=== PATIENT | male | born 1955 | race African-American/Black ===

== ENCOUNTER 2019-08-12 06:28 | Outpatient (CLI) | payer OTHER ==
[2019-08-12 11:08] LABS: #Basophils 0.1 thou/uL (0.0-0.2); #Eosinphils 0.2 thou/uL (0.0-0.7); #Lymphocytes 1.8 thou/uL (1.20-3.40); #Monocytes 0.5 thou/uL (0.11-0.59); #Neutrophils 2.7 thou/uL (1.40-6.50); %Lymphocytes 34.4 % (21.0-51.0); %Monocytes 8.9 % (0.0-10.0); %Neutrophils 51.6 % (42.0-75.0); Hemoglobin 13.6 g/dL (14.0-18.0); Mean Corpuscular HGB CONC 33.6 g/dL (32.0-36.0); Mean Corpuscular Volume 86.3 fL (78.0-98.0); Mean Platelet Volume 9.4 fL (7.4-10.4); Platelet Count 197 thou/uL (130-400); RBC Distribution Width 12.6 % (11.5-14.5); Red Blood Cell (RBC) Count 4.67 mill/uL (4.70-6.10); White Blood Cell (WBC) Count 5.2 thou/uL (4.8-10.8)
[2019-08-13 12:14] LABS: SARS-CoV-2 MS2 Positive; SARS-CoV-2 N Gene Negative; SARS-CoV-2 S Gene Negative; SARS-CoV-2 orf1ab Negative
--- NOTE | 2019-08-15 11:44 | EKG ---
Test Reason : Blood Pressure : / mmHG Vent. Rate : 052 BPM Atrial Rate : 052 BPM P-R Int : 200 ms QRS Dur : 084 ms QT Int : 488 ms P-R-T Axes : 002 025 026 degrees QTc Int : 453 ms Sinus bradycardia with Premature atrial complexes Nonspecific T wave abnormality Abnormal ECG Confirmed by LANE AMATO ([id number]) on 08/15/2019 11:44:19 AM Referred By: JALEEL Confirmed By:LANE AMATO
== END 2019-08-12 06:29 | disposition home or self-care (01) ==
LOC: LABBT 06:28
PROVIDERS: ATTEND Orthopaedic Surgery Hand Surgery
DX: Z01.818 Encounter for other preprocedural examination (principal); Z11.59 Encounter for screening for other viral diseases; S62.601B Fracture of unspecified phalanx of left index finger, initial encounter for open fracture; S66.321A Laceration of extensor muscle, fascia and tendon of left index finger at wrist and hand level, initial encounter; S66.121A Laceration of flexor muscle, fascia and tendon of left index finger at wrist and hand level, initial encounter
CPT/HCPCS: 85025; 87635; 93005; 93010; U0003

== ENCOUNTER 2019-08-16 09:05 | Day surgery (SDC) | payer OTHER ==
[2019-08-11 15:17] VITALS: BMI 24.7
[2019-08-16] MEDS ORDERED: Midazolam HCl 2 mg/2 ml Vial ONE (10:33)
[2019-08-16] MEDS ORDERED: Fentanyl 100 MCG/2 ML VIAL ONE ×2 (10:33→12:27)
[2019-08-16] MEDS ORDERED: EPHEDRINE 25 MG/5 ML SYRINGE ONE (11:22)
[2019-08-16] MEDS ORDERED: PROPOFOL 200 MG/20 ML VIAL ONE (11:22)
[2019-08-16] MEDS ORDERED: Ondansetron PF 4 MG/2 ML Vial ONE (11:22)
[2019-08-16] MEDS ORDERED: Ketorolac Tromethamine 30 MG/ML VIAL ONE (11:22)
[2019-08-16] MEDS ORDERED: Glycopyrrolate 0.2 MG/ML 5 ML SYRINGE ONE (11:22)
[2019-08-16] MEDS ORDERED: Lidocaine 1% PF 5 ML VIAL ONE (11:22)
[2019-08-16] MEDS ORDERED: Bupivacaine HCl 0.5%/Epinephrine 1:200,000/PF 30 ml Vial ONE (11:23)
[2019-08-16] MEDS ORDERED: Bupivacaine PF 0.5% 30 ML VIAL ONE (12:32)
[2019-08-16] MEDS ORDERED: Sodium Chloride 0.9% 10 ML ONE (12:32)
[2019-08-16] MEDS ORDERED: Bacitracin Zinc Ointment 30 gm TUBE ONE (12:32)
[2019-08-16] MEDS ORDERED: Betamet Acet/Betamet Na Ph 30 MG/5 ML VIAL ONE (13:40)
[2019-08-16] MEDS ORDERED: hydrALAZINE 20 MG/ML VIAL ONE (14:53)
--- NOTE | 2019-08-16 17:09 | RAD ---
LEFT INDEX FINGER THREE VIEWS: 08/16/19 HISTORY: Intraoperative ORIF left second digit. FINDINGS/IMPRESSION: Three spot fluoroscopic intraoperative images of the left index finger demonstrate interval pinning t hrough the PIP joint and a surgical clip in the base of the middle phalanx since the exam of 07/06/19. POS: ROSS
--- NOTE | 2019-08-18 13:25 | OP ---
DATE OF PROCEDURE: 08/16/2019 PREOPERATIVE DIAGNOSES: 1. Left index finger poor distal and proximal phalangeal joint flexion and extension with avulsion fracture at the base of the middle phalanx, which created a boutonniere. 2. Flexor tendon adhesions versus laceration. PROCEDURES PERFORMED: Left index finger: 1. Flexor tenolysis, finger only. 2. Open reduction internal fixation with simple slip avulsion fracture open reduction internal fixation, base of proximal phalanx. 3. Pinning of the proximal phalangeal joint. 4. Digital nerve neuroplasty ulnar aspects. 5. C-arm supervision. 6. Application of short-arm splint. ANESTHESIA: General LMA technique augmented by 20 mL of 0.5% Marcaine block, all given prior to surgical incision. TOURNIQUET TIME: 8 minutes for the barber procedure, then the tourniquet was down for 10 minutes for wound closure palmarly, then up for 47 minutes for the dorsal part. ESTIMATED BLOOD LOSS: 10 mL. FINDINGS: Flexor digitorum profundus and superficialis did not have a laceration. There was mild adhesions between the A2 and A3 and A3 and A4. There was no digital nerve laceration and there was a 4 mm x 3 mm avulsion fracture at the base of the proximal phalanx with 70% insertional disruption of the extensor mechanism at the base of the middle phalanx. DESCRIPTION OF PROCEDURE: After successful general endotracheal anesthesia, the limb was prepped and draped. The patient was given the block as outlined above. We had already done a time-out to confirm the sites and the procedure. We exsanguinated the limb and inflated tourniquet to 250 mmHg pressure. We then were able to see the remnant of his lateral radial laceration on the thumb. We entered this which left us with 1 cm radial paramedian incision, then a zigzag Senthil incision proximally to expose the entire distal two-thirds of the middle phalanx. We carried this through skin and subcutaneous tissue, completely visualized with neuroplasty the digital nerve and no was cut. We then visualized the flexor tendon. The distal profundus was intact, but it was adhesed, so we released it from the bone and the underlying donaldo. We also found that it was adhesed under the donaldo as well as some marked adhesions of the flexor digitorum superficialis at its insertion. This was also released. At this point, we could then flex the digit all the way to the palm, the tendon had glide, so we did not feel we needed to do a wrist tenolysis. Then, we released the tourniquet. We then closed the incision seeing good circulation distally and a pink digit with interrupted 4-0 nylon. We exsanguinated the limb and inflated the tourniquet back to 250 mmHg pressure. A Z-type Senthil incision was made, which went ulna to the PIP joint, carried through skin and subcutaneous tissue, and immediately we could see that the extensor mechanism was lifted up off its insertion. We then made an incision where it was most lifted between the extensor mechanism and the terminal tendon/lateral band, and identified the avulsed segment. The size of avulsed segment was about approximately 4 x 3 mm with a thickness of almost 3 mm, we also found that the 75% extensor was avulsed as well. We then curetted the area where the bone came from, placed the anchor in the central portion of this, angled away from the joint (this was a Mitek mini anchor) and then reduced the joint in 0 degrees extension. We pinned the joint at 0 degree extension with a K-wire, avoiding the anchor with excellent position. We then placed the anchor suture through the bony fragment and then tied the bony fragment down with radiographs showing excellent apposition of the bone as well as clinically bone and tendon being opposed. This was done without complication. We then used a 3-0 Prolene in an interrupted buried [id number] to repair the other 1 cm of avulsed tendon back terminal tendon and to itself. We then released the tourniquet. We cut the K-wire below the skin, and closed the skin with hemostasis using interrupted 4-0 nylon in a mattress pattern and the patient left the operating room without evidence of anesthetic or operative complications. Job ID: [id number]
== END 2019-08-16 17:00 | disposition home or self-care (01) ==
LOC: SDC 09:05
PROVIDERS: ATTEND Orthopaedic Surgery Hand Surgery
PROC: 3E0T3BZ Introduction of Anesthetic Agent into Peripheral Nerves and Plexi, Percutaneous Approach (ICD-10-PCS; principal; 2019-08-16)
PROC: 0LN80ZZ Release Left Hand Tendon, Open Approach (ICD-10-PCS; principal; 2019-08-16)
PROC: 0LQ80ZZ Repair Left Hand Tendon, Open Approach (ICD-10-PCS; principal; 2019-08-16)
PROC: 0PSV04Z Reposition Left Finger Phalanx with Internal Fixation Device, Open Approach (ICD-10-PCS; principal; 2019-08-16)
DX: S62.621B Displaced fracture of middle phalanx of left index finger, initial encounter for open fracture (principal); S66.391A Other injury of extensor muscle, fascia and tendon of left index finger at wrist and hand level, initial encounter; G89.18 Other acute postprocedural pain; M20.022 Boutonniere deformity of left finger(s); I10 Essential (primary) hypertension; E11.9 Type 2 diabetes mellitus without complications; Z79.4 Long term (current) use of insulin; Z79.899 Other long term (current) drug therapy; W30.89XA Contact with other specified agricultural machinery, initial encounter; Y92.79 Other farm location as the place of occurrence of the external cause; Y99.0 Civilian activity done for income or pay
CPT/HCPCS: 36416; 76000; C1713; J0360; J0670; J0690; J0702; J1885; J2001; J2250; J2405; J2704; J3010; J3490; S0020

== ENCOUNTER 2019-08-30 01:14 | Inpatient (IN) | payer OTHER ==
--- NOTE | 2019-08-30 00:03 | RAD ---
XR Finger(s) Lt Min 2 View History: ORIF Comparison: Radiograph August 19, 2019 Findings: 4 spot images were obtained. There is removal of hardware of the proximal interphalangeal j oint index finger with placement of antibiotic beads. Impression: Fluoroscopy for surgical purposes.
[~2019-08-30 01:14] MED LIST: Bacitracin Zinc Ointment 30 gm TUBE ONE; Bisacodyl 10 MG SUPP PR PRN; Bupivacaine PF 0.5% 30 ML VIAL ONE; Communication Order-Pharmacy FS SCH; EPHEDRINE 25 MG/5 ML SYRINGE ONE; Fentanyl 100 MCG/2 ML VIAL ONE; Ketorolac Tromethamine 30 MG/ML VIAL ONE; Lidocaine 1% PF 5 ML VIAL ONE; Ondansetron HCl/PF 4 MG/2 ML Vial IVP PRN; Ondansetron PF 4 MG/2 ML Vial ONE; PROPOFOL 200 MG/20 ML VIAL ONE; Promethazine HCl 25 MG/ML VIAL IM PRN; Promethazine HCl 25 MG/ML VIAL SLOW IVP PRN; Sodium Chloride 0.9% 10 ML ONE; Sodium Chloride 0.9% 30 ML ONE; Tobramycin Sulfate 1.2 GM VIAL ONE
[2019-08-30] MEDS: Sodium Chloride 0.9% 100 ML IV SCH ×10 (01:30→13:57)
[2019-08-30 01:51] VITALS: BMI 24.7
[2019-08-30] MEDS ORDERED: Vancomycin 1 GM in Premix Bag 1 BAG IVPB SCH (04:00)
[2019-08-30] MEDS: Ketorolac Tromethamine 30 MG/ML VIAL IVP SCH ×5 (04:19→23:31)
[2019-08-30 05:32] LABS: #Eosinphils 0.2 thou/uL (0.0-0.7); #Lymphocytes 2.2 thou/uL (1.20-3.40); #Monocytes 0.6 thou/uL (0.11-0.59); #Neutrophils 5.9 thou/uL (1.40-6.50); %Basophils 0.5 % (0.0-1.0); %Eosinophils 1.7 % (0.0-10.0); %Lymphocytes 24.9 % (21.0-51.0); %Monocytes 6.3 % (0.0-10.0); %Neutrophils 66.6 % (42.0-75.0); Hemoglobin 11.6 g/dL (14.0-18.0); Mean Corpuscular HGB CONC 32.9 g/dL (32.0-36.0); Mean Corpuscular Volume 85.3 fL (78.0-98.0); Mean Platelet Volume 9.1 fL (7.4-10.4); Platelet Count 269 thou/uL (130-400); RBC Distribution Width 12.8 % (11.5-14.5); Red Blood Cell (RBC) Count 4.14 mill/uL (4.70-6.10); White Blood Cell (WBC) Count 8.8 thou/uL (4.8-10.8)
[2019-08-30 05:52] LABS: ALT (SGPT) 13 U/L (8-55); AST (SGOT) 11 U/L (5-34); Albumin 3.3 g/dL (3.4-4.8); Alkaline Phosphatase 93 U/L (40-110); Anion Gap 12 mmol/L (10-20); BUN (Urea Nitrogen) 33 mg/dL (8.4-25.7); Bilirubin, Total 0.3 mg/dL (0.2-1.2); Calc. Creatinine Clearance 46 mL/min (70-130); Calcium 8.8 mg/dL (7.8-10.44); Carbon Dioxide 21 mmol/L (23-31); Chloride 109 mmol/L (98-107); Estimated GFR-MDRD 50; Globulin 3.1 g/dL (2.4-3.5); Glucose 339 mg/dL (80-115); Potassium 4.1 mmol/L (3.5-5.1); Protein, Total 6.4 g/dL (5.8-8.1); Sodium 138 mmol/L (136-145)
[2019-08-30] MEDS: Aspirin 81 mg Enteric Coated Tablet PO SCH ×2 (07:56→22:02)
[2019-08-30] MEDS: HYDROcodone/Acetaminophen 5/325 mg Tablet PO PRN ×3 (07:56→23:33)
[2019-08-30] MEDS ORDERED: TETANUS AND DIPHTHERIA TOX/PF 0.5 ML DISP.SYRIN IM SCH (09:00)
[2019-08-30] MEDS ORDERED: Heparin 1,000 UNITS/ML VIAL ONE (09:14)
[2019-08-30] MEDS: traMADol HCl 50 MG TAB PO PRN (10:11)
[2019-08-30] MEDS ORDERED: Dextrose 50% Abboject 50 ML SYRINGE SLOW IVP PRN (12:43)
[2019-08-30] MEDS ORDERED: Dextrose 5% in Water 1,000 ML IV PRN (12:43)
[2019-08-30] MEDS: HumaLOG 300 UNITS/3 ML VIAL SC PRN ×2 (13:19→17:05)
--- NOTE | 2019-08-30 14:44 | CON ---
DATE OF CONSULTATION: 08/30/2019 PRIMARY CARE PROVIDER: Dr. Randall Collins. CHIEF COMPLAINT: Management of medical comorbidities. HISTORY OF PRESENT ILLNESS: Mr. Fuentes is a pleasant 64-year-old gentleman, who was seen at [facility] for management of medical comorbidities following surgery over his left index finger. The patient denies any chest pain or shortness of breath. He denies any fevers or chills. He denies any nausea, vomiting, diarrhea, or abdominal pain. REVIEW OF SYSTEMS: All systems were reviewed and found to be negative except for the pertinent positives mentioned above. PAST MEDICAL HISTORY: 1. Diabetes mellitus type 2. 2. Hypertension. 3. Dyslipidemia. 4. Probable chronic kidney disease stage 3. PAST SURGICAL HISTORY: The patient underwent surgery for trauma to left index finger on August 16, 2019. He also underwent removal of hardware from left index finger on August 29, 2019. The patient also gives a history of prostate surgery. FAMILY HISTORY: Myocardial infarction and diabetes mellitus in his mother. SOCIAL HISTORY: The patient denies tobacco use, alcohol use, or recreational drug use. ALLERGIES: NO KNOWN DRUG ALLERGIES. CURRENT MEDICATIONS: 1. Amlodipine 10 mg daily. 2. Aspirin 81 mg daily. 3. Coreg 3.125 mg 2 times a day. 4. Gabapentin 300 mg 2 times a day. 5. Hydralazine 100 mg 3 times a day. 6. Lantus insulin 35 units 2 times a day. 7. Linagliptin 5 mg daily. 8. Lisinopril 40 mg 2 times a day. 9. Pravastatin 20 mg at bedtime. PHYSICAL EXAMINATION: GENERAL: Mr. Fuentes is awake and alert, not in acute distress. VITAL SIGNS: Blood pressure is 179/74, pulse 61, respiratory rate 14, and oxygen saturation 97% on room air. He is afebrile. EYES: No scleral icterus, no conjunctival pallor. ENT: Moist mucosal membranes. No oropharyngeal erythema or exudates. NECK: Supple, nontender, trachea is midline. RESPIRATORY: Accessory muscles of breathing are not active. Chest wall movements are symmetric bilaterally. Lungs are clear to auscultation without wheeze, rhonchi, or crepitations. CARDIOVASCULAR: S1 and S2 are heard, regular. Peripheral pulses palpable. ABDOMEN: Soft, nontender. Bowel sounds are heard. NEUROLOGIC: Cranial nerves 2 through 12 are intact. MUSCULOSKELETAL: The patient's left hand is in dressing. The patient is moving all 4 extremities. SKIN: No rashes. LYMPHATIC: No cervical lymphadenopathy. PSYCHIATRIC: Normal mood, normal affect. The patient is oriented to person, place, and time. LABORATORY DATA: Mr. Fuentes's labs and investigations were reviewed. He has normal white count, normocytic anemia with hemoglobin 11.6, normal platelet count, normal sodium, normal potassium, elevated blood urea nitrogen of 33, elevated creatinine of 1.70, decreased albumin of 3.3, otherwise unremarkable LFTs. ASSESSMENT AND PLAN: Mr. Fuentes is a pleasant 64-year-old gentleman, who was seen at [facility] on August 30, 2019, for management of medical comorbidities. His problem list includes: 1. Diabetes mellitus type 2: The patient's blood sugars are elevated. We will resume his home medications including Lantus and linagliptin. I will also start him on Accu-Cheks and insulin sliding scale. 2. Hypertension: We will resume his home medications except for lisinopril, monitor vital signs and titrate antihypertensives as needed. 3. Chronic kidney disease stage 3: Suspected, based on history of diabetes mellitus and hypertension. I will hold nephrotoxic medications for now, including JODIE inhibitor. I will provide gentle hydration and recheck his chem7. 4. Dyslipidemia: Continue statin. Many thanks for allowing me to participate in your patient's care. Please feel free to contact me with any questions or concerns. LEVEL OF RISK: Moderate. LEVEL OF COMPLEXITY: Moderate. Job ID: [id number]
[2019-08-30] MEDS: hydrALAZINE 25 MG TAB PO SCH ×2 (14:49→22:03)
[2019-08-30] MEDS: Sodium Chloride 0.9% 1,000 ML IV SCH (14:50)
[2019-08-30] MEDS: Morphine 4 MG/ML VIAL SLOW IVP PRN (17:27)
[2019-08-30] MEDS: Fentanyl 100 MCG/2 ML VIAL SLOW IVP PRN (18:22)
[2019-08-30] MEDS ORDERED: Promethazine HCl 25 MG/ML VIAL IM PRN (18:31)
[2019-08-30] MEDS: Ondansetron PF 4 MG/2 ML Vial IV PRN (19:16)
[2019-08-30] MEDS ORDERED: Non-Formulary Item 1 EACH (Insulin Glargine,Hum.Rec.Anlog [Lantus Solostar] 35 UNITS) SQ SCH (21:00)
[2019-08-30] MEDS: Simvastatin 5 MG TAB PO SCH (22:02)
[2019-08-30] MEDS: Gabapentin 300 MG CAP PO SCH (22:02)
[2019-08-30] MEDS: Carvedilol 3.125 MG TAB PO SCH (22:02)
[2019-08-30] MEDS: Vancomycin HCl 1.25 GM in Sodium Chloride 0.9% 250 ML 250 ML IVPB SCH (22:08)
[2019-08-30] MEDS: Insulin Glargine 35 UNITS in Pre-Filled Syringe 1 EACH SC SCH (22:33)
[2019-08-31] MEDS: Sodium Chloride 0.9% 1,000 ML IV SCH ×2 (03:49→18:35)
[2019-08-31] MEDS: hydrALAZINE 20 MG/ML VIAL SLOW IVP PRN ×3 (03:49→16:38)
[2019-08-31 05:33] LABS: #Basophils 0.1 thou/uL (0.0-0.2); #Eosinphils 0.2 thou/uL (0.0-0.7); #Lymphocytes 1.5 thou/uL (1.20-3.40); #Monocytes 0.6 thou/uL (0.11-0.59); #Neutrophils 4.9 thou/uL (1.40-6.50); %Basophils 0.8 % (0.0-1.0); %Lymphocytes 20.6 % (21.0-51.0); %Monocytes 8.5 % (0.0-10.0); %Neutrophils 67.2 % (42.0-75.0); Hemoglobin 11.5 g/dL (14.0-18.0); Mean Corpuscular HGB CONC 33.6 g/dL (32.0-36.0); Mean Corpuscular Hemoglobin 28.8 pg (27.0-31.0); Mean Corpuscular Volume 85.7 fL (78.0-98.0); Mean Platelet Volume 8.7 fL (7.4-10.4); Platelet Count 243 thou/uL (130-400); RBC Distribution Width 12.7 % (11.5-14.5); Red Blood Cell (RBC) Count 4.01 mill/uL (4.70-6.10); White Blood Cell (WBC) Count 7.2 thou/uL (4.8-10.8)
[2019-08-31] MEDS: HumaLOG 300 UNITS/3 ML VIAL SC PRN ×4 (05:45→20:33)
[2019-08-31] MEDS: HYDROcodone/Acetaminophen 5/325 mg Tablet PO PRN ×2 (05:48→18:35)
[2019-08-31 05:55] LABS: Anion Gap 11 mmol/L (10-20); BUN (Urea Nitrogen) 20 mg/dL (8.4-25.7); Calc. Creatinine Clearance 51 mL/min (70-130); Calcium 8.4 mg/dL (7.8-10.44); Carbon Dioxide 21 mmol/L (23-31); Chloride 109 mmol/L (98-107); Estimated GFR-MDRD 55; Glucose 369 mg/dL (80-115); Potassium 4.6 mmol/L (3.5-5.1); Sodium 136 mmol/L (136-145)
[2019-08-31] MEDS: hydrALAZINE 25 MG TAB PO SCH ×3 (08:03→20:32)
[2019-08-31] MEDS: Carvedilol 3.125 MG TAB PO SCH ×2 (08:04→20:32)
[2019-08-31] MEDS: Aspirin 81 mg Enteric Coated Tablet PO SCH ×2 (08:04→20:32)
[2019-08-31] MEDS: traMADol HCl 50 MG TAB PO PRN (08:04)
[2019-08-31] MEDS: Gabapentin 300 MG CAP PO SCH ×2 (08:04→20:32)
[2019-08-31] MEDS: Insulin Glargine 35 UNITS in Pre-Filled Syringe 1 EACH SC SCH ×2 (08:05→20:32)
[2019-08-31] MEDS: Alogliptin 6.25 MG TAB PO SCH (08:45)
[2019-08-31] MEDS ORDERED: Amlodipine 10 MG TAB PO SCH (09:00)
[2019-08-31] MEDS: Morphine 4 MG/ML VIAL SLOW IVP PRN (10:47)
[2019-08-31] MEDS: Ondansetron PF 4 MG/2 ML Vial IV PRN (14:23)
[2019-08-31] MEDS: Milk Of Magnesia 30 ML UDCUP PO PRN (14:26)
--- NOTE | 2019-08-31 14:35 | PDOC.HOSPP ---
- Subjective Encounter Date: 08/31/19 Encounter Time: 08:00 Subjective: Pt seen for followup for DM2. No complaints. - Objective Vital Signs & Weight: Vital Signs (12 hours) Temp Pulse Resp BP BP Pulse Ox 08/31/19 14:23 59 L 08/31/19 11:41 97.7 F 59 L 14 97 08/31/19 11:18 62 20 178/76 H 98 08/31/19 10:35 61 196/91 H 08/31/19 08:04 61 196/91 H 08/31/19 08:03 61 196/91 H 08/31/19 07:35 97.7 F 61 16 196/91 H 99 08/31/19 03:49 54 L 176/89 H 08/31/19 03:34 98.2 F 54 L 18 176/89 H 99 Weight Admit Weight 162 lb 11.2 oz Weight 162 lb 11.2 oz I&O: 08/30/19 08/31/19 09/01/19 06:59 06:59 06:59 Intake Total 3830 Output Total 2400 Balance 1430 Result Diagrams: 08/31/19 05:25 08/31/19 05:25 Additional Labs: Accuchecks 08/31/19 08/31/19 08/30/19 10:48 05:48 22:10 POC Glucose 302 H 327 H 177 H 08/30/19 16:25 POC Glucose 262 H Labs and MARs reviewed by nj Hospitalist ROS - Review of Systems Cardiovascular: denies: chest pain, palpitations, orthopnea, paroxysmal noc. dyspnea, edema, light headedness Gastrointestinal: denies: nausea, vomiting, abdominal pain, diarrhea, constipation, melena, hematochezia - Medication Medications: Active Medications Generic Name Dose Route Start Last Admin Trade Name Freq PRN Reason Stop Dose Admin Hydrocodone Bitart/Acetaminophen 1 tab 08/29/19 21:53 08/31/19 05:48 [place] 5/325 PO 1 tab Q4H PRN Administration Moderate Pain (4-6) Alogliptin Benzoate 12.5 mg 08/31/19 09:00 08/31/19 08:45 Alogliptin PO 12.5 mg DAILY LARON Administration Amlodipine Besylate 10 mg 08/31/19 09:00 08/31/19 08:04 Norvasc PO 10 mg DAILY LARON Administration Aspirin 81 mg 08/30/19 09:00 08/31/19 08:04 Ecotrin PO 81 mg BID LARON Administration Carvedilol 3.125 mg 08/30/19 21:00 08/31/19 08:04 Coreg PO 3.125 mg BID LARON Administration Fentanyl 50 mcg 08/29/19 20:33 08/30/19 18:22 Sublimaze SLOW IVP 50 mcg Q15MIN PRN Administration PRE-OP PAIN Gabapentin 300 mg 08/30/19 21:00 08/31/19 08:04 Neurontin PO 300 mg BID LARON Administration Hydralazine HCl 10 mg 08/30/19 12:44 08/31/19 10:35 Apresoline SLOW IVP 10 mg Q6H PRN Administration SBP Greater Than 170 Hydralazine HCl 100 mg 08/30/19 15:00 08/31/19 14:23 Apresoline PO 100 mg TID LARON Administration Vancomycin HCl 1.25 gm/ Sodium 250 mls @ 166.667 mls/hr 08/30/19 22:00 22:08 Chloride IVPB 250 mls 2200 LARON Administration Sodium Chloride 1,000 mls @ 70 mls/hr 08/30/19 14:15 08/31/19 03:49 Normal Saline 0.9% IV 1,000 mls .[id number] LARON Administration Insulin Glargine 35 units/ 0.35 mls @ 0 mls/hr 08/30/19 21:00 08/31/19 08:05 Miscellaneous Medication SC 0.35 mls BID LARON Administration Insulin Human Lispro 0 units 08/30/19 12:43 08/31/19 12:20 Humalog SC 5 unit .MILD SLIDING SCALE PRN Administration Mild Correctional Scale Magnesium Hydroxide 30 ml 08/29/19 21:53 08/31/19 14:26 Milk Of Magnesium PO 30 ml DAILY PRN Administration Constipation Morphine Sulfate 4 mg 08/29/19 21:53 08/31/19 10:47 Morphine SLOW IVP 4 mg Q2H PRN Administration Severe Pain (7-10) Ondansetron HCl 4 mg 08/29/19 21:53 08/31/19 14:23 Zofran IV 4 mg Q6H PRN Administration Nausea Simvastatin 10 mg 08/30/19 21:00 08/30/19 22:02 Zocor PO 10 mg HS LARON Administration Tramadol HCl 50 mg 08/29/19 21:53 08/31/19 08:04 Ultram PO 50 mg Q6H PRN Administration Mild Pain (1-3) - Exam General Appearance: awake alert Eye: anicteric sclera ENT: normocephalic atraumatic Neck: supple, symmetric Heart: RRR, no murmur Respiratory: CTAB, no wheezes Gastrointestinal: soft, non-tender Extremities: no cyanosis Skin: normal turgor Neurological: cranial nerve grossly intact Psychiatric: normal affect, normal behavior Hosp A/P (1) DM2 (diabetes mellitus, type 2) Status: Chronic (2) Chronic kidney disease, stage 3 Code(s): N18.3 - CHRONIC KIDNEY DISEASE, STAGE 3 (MODERATE) Status: Chronic (3) HTN (hypertension) Code(s): I10 - ESSENTIAL (PRIMARY) HYPERTENSION Status: Chronic (4) Dyslipidemia Code(s): E78.5 - HYPERLIPIDEMIA, UNSPECIFIED Status: Chronic - Plan PT/OT, out of bed/ambulate Change to aggressive insulin sliding scale. Continue PRN IV hydralazine. Continue statin.
--- NOTE | 2019-08-31 18:04 | CON ---
DATE OF CONSULTATION: 08/31/2019 REASON FOR CONSULTATION: Osteomyelitis of left hand. 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 Menendez on 08/16, consisted of flexor tenolysis, ORIF with slip avulsion fracture, open reduction and internal fixation, pinning of the proximal interphalangeal joint, and neuroplasty of the digital nerve ulnar aspect. Unfortunately, he developed postoperative infection and he had to be readmitted and had a repeat intervention. The operative report second time around is not yet transcribed. The patient is feeling okay. He has no pain in the hand. No headaches, visual symptoms, sore throat, odynophagia, or dysphagia. No cough or sputum production. No chest pain. No abdominal pain or diarrhea. No genitourinary symptoms. No other joint symptoms. PAST MEDICAL HISTORY: 1. Type 2 diabetes. 2. Hypertension. 3. CKD stage 3. SURGICAL HISTORY: 1. Index finger left ORIF and now he has had repeat I and D with likely removal of the hardware. 2. Some prostate surgery. FAMILY HISTORY: Coronary artery disease. SOCIAL HISTORY: . Never smoker. ALLERGIES: NONE. CURRENT MEDICATIONS: 1. Alogliptin. 2. Norvasc. 3. Ecotrin. 4. Dulcolax. 5. Coreg. 6. Sublimaze. 7. Neurontin. 8. Insulin. 9. Demerol. 10. Zofran. 11. Zocor. 12. Tramadol. 13. Vancomycin. PHYSICAL EXAMINATION: VITAL SIGNS: Temperature has been normal since the admission, elevation of systolic at 195/87. Other elements of the vitals are normal. O2 saturations are good. GENERAL: Appears in no distress. The left hand dressed. HEENT: Ocular movements conjugate. Oral cavity normal. NECK: Supple. LUNGS: Symmetric, clear breath sounds. HEART: S1 and S2. Regular rate. No S3 or S4. ABDOMEN: Soft, not distended or tender. No ascites. No bladder distention. EXTREMITIES: No joint inflammatory activity outside the involved area. NEUROLOGIC: Nonfocal. LABORATORY DATA: White cell count 8.8 and 7.2, hemoglobin 11.5, and platelets 243 with 20% lymphocytes. Creatinine 1.55, which is improved from admission when it was 1.7. Blood sugars have been elevated, starting at 177, now 302. CRP 1.58. The liver profile normal. Albumin 3.3. We have 4 samples from the surgical procedure, the second time around, and the 1st sample with Staph aureus and Enterococcus and all the other three samples with Staphylococcus aureus, but this seems to be the pathogen, Enterococcus species is probably just a colonizing agent, so awaiting on the susceptibilities. The bone biopsy pathology is already resulted and there was evidence of acute osteomyelitis. ASSESSMENT: 1. Work injury with open reduction and internal fixation. 2. Acute osteomyelitis status post I and D, and I think the hardware was removed. At this point, we will wait on the final identification of the organism and susceptibility profile and then transition to the suitable IV antimicrobial therapy for outpatient therapy. PICC line placement and we will plan for about 3-4 weeks of IV therapy and transitioned then to oral therapy for another 3-4 weeks according to the susceptibility results. I discussed potential adverse reactions from the antimicrobial therapy administered, particularly hypersensitive reactions, diarrhea, as well as PICC line complications, such as obstruction/clotting. The patient understood and agreed with management recommendations. Job ID: [id number]
[2019-08-31] MEDS: Simvastatin 5 MG TAB PO SCH (20:32)
[2019-08-31 21:23] LABS: Vancomycin, Trough 6.3 ug/mL
[2019-08-31] MEDS: Vancomycin HCl 1.25 GM in Sodium Chloride 0.9% 250 ML 250 ML IVPB SCH (21:41)
[2019-09-01] MEDS: hydrALAZINE 20 MG/ML VIAL SLOW IVP PRN ×2 (05:24→12:31)
[2019-09-01 06:17] LABS: Hemoglobin A1c 9.9 % (4.0-6.0)
[2019-09-01] MEDS: Morphine 4 MG/ML VIAL SLOW IVP PRN (07:56)
[2019-09-01] MEDS: Insulin Glargine 35 UNITS in Pre-Filled Syringe 1 EACH SC SCH ×2 (08:22→21:39)
[2019-09-01] MEDS: hydrALAZINE 25 MG TAB PO SCH ×3 (08:22→20:33)
[2019-09-01] MEDS: Gabapentin 300 MG CAP PO SCH ×2 (08:22→20:34)
[2019-09-01] MEDS: Aspirin 81 mg Enteric Coated Tablet PO SCH ×2 (08:23→20:34)
[2019-09-01] MEDS: Amlodipine 10 MG TAB PO SCH (08:23)
[2019-09-01] MEDS: Carvedilol 3.125 MG TAB PO SCH ×2 (08:23→20:34)
[2019-09-01] MEDS: Sodium Chloride 0.9% 1,000 ML IV SCH (08:24)
[2019-09-01] MEDS: HYDROcodone/Acetaminophen 5/325 mg Tablet PO PRN ×2 (08:31→19:17)
[2019-09-01] MEDS: Alogliptin 6.25 MG TAB PO SCH (09:50)
[2019-09-01] MEDS: Vancomycin HCl 1.25 GM in Sodium Chloride 0.9% 250 ML 250 ML IVPB SCH ×2 (09:51→22:28)
[2019-09-01] MEDS ORDERED: cloNIDine 0.1 MG TAB PO SCH (10:15)
[2019-09-01] MEDS: HumaLOG 300 UNITS/3 ML VIAL SC PRN ×2 (12:29→15:58)
[2019-09-01] MEDS: cloNIDine 0.1 MG TAB PO PRN (15:58)
--- NOTE | 2019-09-01 18:13 | PDOC.HOSPP ---
- Subjective Encounter Date: 09/01/19 Encounter Time: 08:20 Subjective: Pt seen for followup for DM2. Feels better, denies any complaints. - Objective Vital Signs & Weight: Vital Signs (12 hours) Temp Pulse Resp BP BP Pulse Ox 09/01/19 15:58 171/73 H 09/01/19 15:56 98.0 F 64 18 171/73 H 98 09/01/19 14:39 64 141/70 H 09/01/19 13:24 68 146/72 H 97 09/01/19 12:31 61 172/82 H 09/01/19 11:31 98 F 68 20 186/85 H 97 09/01/19 10:36 187/85 H 09/01/19 10:04 185/87 H 09/01/19 09:55 98.3 F 85 12 200/96 H 98 09/01/19 08:23 93 200/96 H 98 09/01/19 08:22 93 200/96 H Weight Admit Weight 162 lb 11.2 oz Weight 162 lb 11.2 oz I&O: 08/31/19 09/01/19 09/02/19 06:59 06:59 06:59 Intake Total 3830 1840 340 Output Total 2400 1825 Balance 1430 15 340 Result Diagrams: 08/31/19 05:25 08/31/19 05:25 Additional Labs: Accuchecks 09/01/19 09/01/19 09/01/19 15:20 11:09 05:58 POC Glucose 184 H 312 H 119 H 09/01/19 08/31/19 08/29/19 05:24 20:09 16:45 POC Glucose 53 L* 356 H 103 Labs and MARs reviewed by ms Hospitalist ROS - Review of Systems Genitourinary: denies: dysuria, frequency, incontinence, hematuria, retention Skin: denies: rash, lesions, rico, bruising - Medication Medications: Active Medications Generic Name Dose Route Start Last Admin Trade Name Freq PRN Reason Stop Dose Admin Hydrocodone Bitart/Acetaminophen 1 tab 08/29/19 21:53 09/01/19 08:31 [place] 5/325 PO 1 tab Q4H PRN Administration Moderate Pain (4-6) Alogliptin Benzoate 12.5 mg 08/31/19 09:00 09/01/19 09:50 Alogliptin PO 12.5 mg DAILY LARON Administration Amlodipine Besylate 10 mg 09/01/19 09:00 09/01/19 08:23 Norvasc PO 10 mg DAILY LARON Administration Aspirin 81 mg 08/30/19 09:00 09/01/19 08:23 Ecotrin PO 81 mg BID LARON Administration Carvedilol 3.125 mg 08/30/19 21:00 09/01/19 08:23 Coreg PO 3.125 mg BID LARON Administration Clonidine 0.1 mg 09/01/19 10:07 09/01/19 15:58 Catapres PO 0.1 mg Q4H PRN Administration SBP Greater Than 170 Fentanyl 50 mcg 08/29/19 20:33 08/30/19 18:22 Sublimaze SLOW IVP 50 mcg Q15MIN PRN Administration PRE-OP PAIN Gabapentin 300 mg 08/30/19 21:00 09/01/19 08:22 Neurontin PO 300 mg BID LARON Administration Hydralazine HCl 10 mg 08/30/19 12:44 09/01/19 12:31 Apresoline SLOW IVP 10 mg Q6H PRN Administration SBP Greater Than 170 Hydralazine HCl 100 mg 08/30/19 15:00 09/01/19 14:39 Apresoline PO 100 mg TID LARON Administration Sodium Chloride 1,000 mls @ 70 mls/hr 08/30/19 14:15 09/01/19 08:24 Normal Saline 0.9% IV 1,000 mls .[id number] LARON Administration Insulin Glargine 35 units/ 0.35 mls @ 0 mls/hr 08/30/19 21:00 09/01/19 08:22 Miscellaneous Medication SC 0.35 mls BID LARON Administration Vancomycin HCl 1.25 gm/ Sodium 250 mls @ 166.667 mls/hr 09/01/19 10:00 09:51 Chloride IVPB 250 mls 1000,2200 LARON Administration Insulin Human Lispro 0 units 08/30/19 22:33 08/31/19 20:33 Humalog SC 5 unit .BEDTIME SLIDING SC PRN Administration Bedtime Correctional Scale Insulin Human Lispro 0 units 08/31/19 14:35 09/01/19 15:58 Humalog SC 2 unit .AGGRESSIVE SLIDING PRN Administration Aggressive Correctional Scale Magnesium Hydroxide 30 ml 08/29/19 21:53 08/31/19 14:26 Milk Of Magnesium PO 30 ml DAILY PRN Administration Constipation Morphine Sulfate 4 mg 08/29/19 21:53 09/01/19 07:56 Morphine SLOW IVP 4 mg Q2H PRN Administration Severe Pain (7-10) Ondansetron HCl 4 mg 08/29/19 21:53 08/31/19 14:23 Zofran IV 4 mg Q6H PRN Administration Nausea Simvastatin 10 mg 08/30/19 21:00 08/31/19 20:32 Zocor PO 10 mg HS LARON Administration Tramadol HCl 50 mg 08/29/19 21:53 08/31/19 08:04 Ultram PO 50 mg Q6H PRN Administration Mild Pain (1-3) - Exam General Appearance: awake alert Eye: anicteric sclera ENT: moist mucosa Neck: supple Heart: RRR Respiratory: CTAB Gastrointestinal: soft, non-tender Skin: no rashes Psychiatric: normal affect, normal behavior Hosp A/P (1) DM2 (diabetes mellitus, type 2) Status: Chronic (2) Chronic kidney disease, stage 3 Code(s): N18.3 - CHRONIC KIDNEY DISEASE, STAGE 3 (MODERATE) Status: Chronic (3) HTN (hypertension) Code(s): I10 - ESSENTIAL (PRIMARY) HYPERTENSION Status: Chronic (4) Dyslipidemia Code(s): E78.5 - HYPERLIPIDEMIA, UNSPECIFIED Status: Chronic - Plan Continue aggressive insulin sliding scale. Sugars improved. Continue PRN IV hydralazine. Start PRN clonidine. Pt is on statin.
[2019-09-01] MEDS: Simvastatin 5 MG TAB PO SCH (20:34)
[2019-09-02] MEDS: Sodium Chloride 0.9% 1,000 ML IV SCH ×2 (00:37→19:21)
[2019-09-02] MEDS: hydrALAZINE 20 MG/ML VIAL SLOW IVP PRN (03:26)
[2019-09-02] MEDS: HYDROcodone/Acetaminophen 5/325 mg Tablet PO PRN ×2 (03:32→19:20)
[2019-09-02] MEDS: Morphine 4 MG/ML VIAL SLOW IVP PRN ×4 (05:33→23:52)
[2019-09-02] MEDS: Amlodipine 10 MG TAB PO SCH (07:38)
[2019-09-02] MEDS: Carvedilol 3.125 MG TAB PO SCH ×2 (07:38→21:39)
[2019-09-02 09:31] LABS: Vancomycin, Trough 18.4 ug/mL
[2019-09-02] MEDS: Vancomycin HCl 1.25 GM in Sodium Chloride 0.9% 250 ML 250 ML IVPB SCH ×2 (10:58→22:35)
[2019-09-02] MEDS ORDERED: Midazolam HCl 2 mg/2 ml Vial ONE ×2 (11:09→13:34)
[2019-09-02] MEDS ORDERED: Morphine 10 MG/ML VIAL ONE (11:09)
--- NOTE | 2019-09-02 12:00 | PDOC.HOSPP ---
- Subjective Encounter Date: 09/02/19 Encounter Time: 08:10 Subjective: Pt seen for followup for diabetes mellitus. Feels better. - Objective Vital Signs & Weight: Vital Signs (12 hours) Temp Pulse Resp BP Pulse Ox 09/02/19 11:15 98.1 F 62 16 161/76 H 96 09/02/19 07:05 97.9 F 65 16 171/86 H 97 09/02/19 06:41 164/81 H 09/02/19 03:26 60 09/02/19 03:20 97.8 F 60 16 170/88 H 98 Weight Admit Weight 162 lb 11.2 oz Weight 162 lb 11.2 oz I&O: 09/01/19 09/02/19 09/03/19 06:59 06:59 06:59 Intake Total 1840 1280 Output Total 1825 850 Balance 15 430 Result Diagrams: 08/31/19 05:25 08/31/19 05:25 Additional Labs: Accuchecks 09/02/19 09/02/19 09/02/19 11:08 05:14 03:28 POC Glucose 88 54 L* 77 09/01/19 09/01/19 20:24 15:20 POC Glucose 146 H 184 H Labs and MARs reviewed by nv Hospitalist ROS - Review of Systems Cardiovascular: denies: chest pain, palpitations, orthopnea, paroxysmal noc. dyspnea, edema, light headedness Musculoskeletal: denies: neck pain, shoulder pain, arm pain, back pain, hand pain, leg pain, foot pain - Medication Medications: Active Medications Generic Name Dose Route Start Last Admin Trade Name Freq PRN Reason Stop Dose Admin Hydrocodone Bitart/Acetaminophen 1 tab 08/29/19 21:53 09/02/19 03:32 [place] 5/325 PO 1 tab Q4H PRN Administration Moderate Pain (4-6) Alogliptin Benzoate 12.5 mg 08/31/19 09:00 09/01/19 09:50 Alogliptin PO 12.5 mg DAILY LARON Administration Amlodipine Besylate 10 mg 09/01/19 09:00 09/02/19 07:38 Norvasc PO 10 mg DAILY LARON Administration Aspirin 81 mg 08/30/19 09:00 09/01/19 20:34 Ecotrin PO 81 mg BID LARON Administration Carvedilol 3.125 mg 08/30/19 21:00 07/03/20 07:38 Coreg PO 3.125 mg BID LARON Administration Clonidine 0.1 mg 09/01/19 10:07 09/01/19 15:58 Catapres PO 0.1 mg Q4H PRN Administration SBP Greater Than 170 Fentanyl 50 mcg 08/29/19 20:33 08/30/19 18:22 Sublimaze SLOW IVP 50 mcg Q15MIN PRN Administration PRE-OP PAIN Gabapentin 300 mg 08/30/19 21:00 09/01/19 20:34 Neurontin PO 300 mg BID LARON Administration Hydralazine HCl 10 mg 08/30/19 12:44 09/02/19 03:26 Apresoline SLOW IVP 10 mg Q6H PRN Administration SBP Greater Than 170 Hydralazine HCl 100 mg 08/30/19 15:00 09/01/19 20:33 Apresoline PO 100 mg TID LARON Administration Dextrose/Water 1,000 mls @ 0 mls/hr 08/30/19 12:43 09/02/19 05:27 D5w IV 1,000 mls .Q0M PRN Administration Hypoglycemia As Directed Sodium Chloride 1,000 mls @ 70 mls/hr 08/30/19 14:15 09/02/19 00:37 Normal Saline 0.9% IV Not Given .[id number] [facility] Insulin Glargine 35 units/ 0.35 mls @ 0 mls/hr 08/30/19 21:00 09/01/19 21:39 Miscellaneous Medication SC Not Given BID [facility] Vancomycin HCl 1.25 gm/ Sodium 250 mls @ 166.667 mls/hr 09/01/19 10:00 10:58 Chloride IVPB 250 mls 1000,2200 LARON Administration Insulin Human Lispro 0 units 08/30/19 22:33 08/31/19 20:33 Humalog SC 5 unit .BEDTIME SLIDING SC PRN Administration Bedtime Correctional Scale Insulin Human Lispro 0 units 08/31/19 14:35 09/01/19 15:58 Humalog SC 2 unit .AGGRESSIVE SLIDING PRN Administration Aggressive Correctional Scale Magnesium Hydroxide 30 ml 08/29/19 21:53 08/31/19 14:26 Milk Of Magnesium PO 30 ml DAILY PRN Administration Constipation Morphine Sulfate 4 mg 08/29/19 21:53 09/02/19 05:33 Morphine SLOW IVP 4 mg Q2H PRN Administration Severe Pain (7-10) Ondansetron HCl 4 mg 08/29/19 21:53 08/31/19 14:23 Zofran IV 4 mg Q6H PRN Administration Nausea Simvastatin 10 mg 08/30/19 21:00 09/01/19 20:34 Zocor PO 10 mg HS LARON Administration Tramadol HCl 50 mg 08/29/19 21:53 08/31/19 08:04 Ultram PO 50 mg Q6H PRN Administration Mild Pain (1-3) - Exam General Appearance: awake alert Eye: anicteric sclera ENT: normocephalic atraumatic Neck: supple Heart: RRR, no gallops Respiratory: CTAB Gastrointestinal: soft Skin: normal turgor Musculoskeletal: normal tone Psychiatric: normal affect, normal behavior Hosp A/P (1) DM2 (diabetes mellitus, type 2) Status: Chronic (2) Chronic kidney disease, stage 3 Code(s): N18.3 - CHRONIC KIDNEY DISEASE, STAGE 3 (MODERATE) Status: Chronic (3) HTN (hypertension) Code(s): I10 - ESSENTIAL (PRIMARY) HYPERTENSION Status: Chronic (4) Dyslipidemia Code(s): E78.5 - HYPERLIPIDEMIA, UNSPECIFIED Status: Chronic - Plan For surgery today. Hypoglycemic episode, continue hypoglycemia protocol. Continue PRN IV hydralazine and PRN clonidine. Pt is on statin.
[2019-09-02] MEDS ORDERED: Ondansetron PF 4 MG/2 ML Vial ONE (13:14)
[2019-09-02] MEDS ORDERED: EPHEDRINE 25 MG/5 ML SYRINGE ONE (13:14)
[2019-09-02] MEDS ORDERED: PROPOFOL 200 MG/20 ML VIAL ONE (13:14)
[2019-09-02] MEDS ORDERED: Glycopyrrolate 0.2 MG/ML 5 ML SYRINGE ONE (13:14)
[2019-09-02] MEDS ORDERED: Lidocaine 1% PF 5 ML VIAL ONE (13:14)
[2019-09-02] MEDS ORDERED: Bupivacaine PF 0.5% 30 ML VIAL ONE (13:32)
[2019-09-02] MEDS ORDERED: Bacitracin Zinc Ointment 30 gm TUBE ONE (13:32)
[2019-09-02] MEDS ORDERED: Sodium Chloride 0.9% 10 ML ONE (13:33)
[2019-09-02] MEDS ORDERED: Fentanyl 100 MCG/2 ML VIAL ONE ×2 (13:34→17:03)
[2019-09-02] MEDS ORDERED: Sodium Chloride 0.9% 50 ML ONE (14:23)
[2019-09-02] MEDS ORDERED: Tobramycin Sulfate 1.2 GM VIAL ONE (14:24)
[2019-09-02] MEDS ORDERED: Tobramycin 80 MG/2 ML VIAL ONE (14:24)
--- NOTE | 2019-09-02 14:57 | PRG ---
DATE OF SERVICE: 09/02/2019 SUBJECTIVE: The patient is in the operating room right now, having a revision of the area of his hand. He has been afebrile. Slight elevation of systolic blood pressure. O2 saturations are good. LABORATORY DATA: White cell count 2 days ago 7.2, hemoglobin 11, platelets 243. Cultures mostly with Enterococcus and Staph aureus, which is MRSA. He also has Pseudomonas in the last sample. We will have to see those have a pathogenic role in this infection and treat it accordingly. ASSESSMENT AND DISCUSSION: Work injury, acute osteomyelitis, status post I and D, hardware removed. I guess, we will treat him with a combination of daptomycin and ciprofloxacin for about 4 weeks and then transition to rifampin, doxycycline, and Cipro. Job ID: [id number]
[2019-09-02] MEDS ORDERED: Promethazine HCl 25 MG/ML VIAL IM PRN (16:40)
[2019-09-02] MEDS ORDERED: Promethazine HCl 25 MG/ML VIAL SLOW IVP PRN (16:40)
[2019-09-02] MEDS ORDERED: Ondansetron HCl/PF 4 MG/2 ML Vial IVP PRN (16:40)
--- NOTE | 2019-09-02 17:00 | RAD ---
Exam: XR Finger(s) Lt Min 2 View HISTORY: Debridement of left index finger. COMPARISON: 08/29/2019 FINDINGS: 2 intraoperative fluoroscopic images left index finger are submitted. Lucency involving the base of t he middle phalanx and distal aspect of the proximal phalanx is present. The antibiotic beads noted on the prior study are not seen on this exam. There does appear to be subcutaneous soft tissue swelli ng involving the index finger. Correlation with intraoperative findings is recommended. Fluoroscopy: Time-5.6 seconds Dose-0.17 mGy
[2019-09-02] MEDS ORDERED: hydrALAZINE 20 MG/ML VIAL ONE (17:27)
[2019-09-02] MEDS: Aspirin 81 mg Enteric Coated Tablet PO SCH ×2 (18:24→21:38)
[2019-09-02] MEDS: Alogliptin 6.25 MG TAB PO SCH (18:24)
[2019-09-02] MEDS: hydrALAZINE 25 MG TAB PO SCH ×2 (18:25→21:38)
[2019-09-02] MEDS: Insulin Glargine 35 UNITS in Pre-Filled Syringe 1 EACH SC SCH ×2 (18:25→22:34)
[2019-09-02] MEDS: Gabapentin 300 MG CAP PO SCH ×2 (18:25→21:39)
--- NOTE | 2019-09-02 19:46 | SPC ---
Ultrasound and Fluoroscopic guided right upper extremity PICC placement HISTORY: Finger infection. Post left finger debridement. Patient needs long-term IV antibiotics FINDINGS: Informed consent obtained prior to the procedure. An appropriate access site was determined with ultrasound guidance. The area was then meticulously pr epped and draped in usual sterile fashion. Skin overlying the right brachial vein anesthetized with 1% buffered lidocaine. Utilizing direct sono graphic guidance, vascular access is obtained via the right brachial vein, and an 0.018in guidewire was advanced to the cavoatrial junction. Intravascular length is calculated at 38 cm, and the PICC is cut accordingly. Needle is removed and replaced with a peel-away sheath. The PICC was advanced over the wire. Wire and peel-away sheath were removed. The tip of the catheter overlies the cavoatrial junction. The catheter was accessed and aspirated/flushed easily. Exposure data: 0.2 minutes of fluoroscopic time 2154 mGy centimeter squared FINDINGS: Technically successful placement of a 38 centimeter single lumen 5 Arabic right upper extremity PICC line. IMPRESSION: Successful ultrasound guided placement of a right upper extremity PICC.
[2019-09-02] MEDS: Simvastatin 5 MG TAB PO SCH (21:39)
[2019-09-03] MEDS: HYDROcodone/Acetaminophen 5/325 mg Tablet PO PRN ×5 (01:55→21:09)
[2019-09-03] MEDS: Morphine 4 MG/ML VIAL SLOW IVP PRN ×5 (01:55→18:26)
[2019-09-03] MEDS: Sodium Chloride 0.9% 1,000 ML IV SCH ×2 (06:14→18:26)
[2019-09-03] MEDS: hydrALAZINE 25 MG TAB PO SCH ×3 (09:05→21:10)
[2019-09-03] MEDS: Insulin Glargine 35 UNITS in Pre-Filled Syringe 1 EACH SC SCH (09:05)
[2019-09-03] MEDS: Alogliptin 6.25 MG TAB PO SCH (09:05)
[2019-09-03] MEDS: Carvedilol 3.125 MG TAB PO SCH ×2 (09:05→21:10)
[2019-09-03] MEDS: Gabapentin 300 MG CAP PO SCH ×2 (09:05→21:10)
[2019-09-03] MEDS: Fentanyl 100 MCG/2 ML VIAL SLOW IVP PRN (09:06)
[2019-09-03] MEDS: Aspirin 81 mg Enteric Coated Tablet PO SCH ×2 (09:06→21:10)
[2019-09-03] MEDS: Amlodipine 10 MG TAB PO SCH (09:06)
[2019-09-03] MEDS: Vancomycin HCl 1.25 GM in Sodium Chloride 0.9% 250 ML 250 ML IVPB SCH ×2 (12:16→22:49)
--- NOTE | 2019-09-03 20:09 | PDOC.HOSPP ---
- Subjective Encounter Date: 09/03/19 Encounter Time: 09:00 Subjective: no overnight events. this morning, has no complaints. Discharge pending arrangement of IV antibiotics as per infectious disease - Objective Vital Signs & Weight: Vital Signs (12 hours) Temp Pulse Resp BP Pulse Ox 09/03/19 15:51 82 09/03/19 15:36 98.1 F 82 16 181/99 H 94 L 09/03/19 11:05 98.5 F 76 18 174/77 H 92 L 09/03/19 09:06 69 09/03/19 09:05 69 Weight Admit Weight 162 lb 11.2 oz Weight 162 lb 11.2 oz I&O: 09/02/19 09/03/19 09/04/19 06:59 06:59 06:59 Intake Total 1280 1000 Output Total 850 750 Balance 430 250 Result Diagrams: 08/31/19 05:25 08/31/19 05:25 Additional Labs: Accuchecks 09/03/19 09/03/19 09/03/19 15:44 10:46 06:16 POC Glucose 246 H 250 H 175 H 09/02/19 22:37 POC Glucose 240 H Hospitalist ROS - Review of Systems Constitutional: denies: fever, chills, sweats, weakness, malaise, other Respiratory: denies: cough, dry, shortness of breath, hemoptysis, SOB with excertion, pleuritic pain, sputum, wheezing, other Cardiovascular: denies: chest pain, palpitations, orthopnea, paroxysmal noc. dyspnea, edema, light headedness, other Gastrointestinal: denies: nausea, vomiting, abdominal pain, diarrhea, constipation, melena, hematochezia, other Genitourinary: denies: dysuria, frequency, incontinence, hematuria, retention, other - Medication Medications: Active Medications Generic Name Dose Route Start Last Admin Trade Name Freq PRN Reason Stop Dose Admin Hydrocodone Bitart/Acetaminophen 1 tab 08/29/19 21:53 09/03/19 15:52 [place] 5/325 PO 1 tab Q4H PRN Administration Moderate Pain (4-6) Alogliptin Benzoate 12.5 mg 08/31/19 09:00 09/03/19 09:05 Alogliptin PO 12.5 mg DAILY LARON Administration Amlodipine Besylate 10 mg 09/01/19 09:00 09/03/19 09:06 Norvasc PO 10 mg DAILY LARON Administration Aspirin 81 mg 08/30/19 09:00 09/03/19 09:06 Ecotrin PO 81 mg BID LARON Administration Carvedilol 3.125 mg 08/30/19 21:00 09/03/19 09:05 Coreg PO 3.125 mg BID LARON Administration Clonidine 0.1 mg 09/01/19 10:07 09/01/19 15:58 Catapres PO 0.1 mg Q4H PRN Administration SBP Greater Than 170 Gabapentin 300 mg 08/30/19 21:00 09/03/19 09:05 Neurontin PO 300 mg BID LARON Administration Hydralazine HCl 10 mg 08/30/19 12:44 09/02/19 03:26 Apresoline SLOW IVP 10 mg Q6H PRN Administration SBP Greater Than 170 Hydralazine HCl 100 mg 08/30/19 15:00 09/03/19 15:51 Apresoline PO 100 mg TID LARON Administration Dextrose/Water 1,000 mls @ 0 mls/hr 08/30/19 12:43 09/02/19 05:27 D5w IV 1,000 mls .Q0M PRN Administration Hypoglycemia As Directed Sodium Chloride 1,000 mls @ 70 mls/hr 08/30/19 14:15 09/03/19 18:26 Normal Saline 0.9% IV 1,000 mls .[id number] LARON Administration Insulin Glargine 35 units/ 0.35 mls @ 0 mls/hr 08/30/19 21:00 09/03/19 09:05 Miscellaneous Medication SC 0.35 mls BID LARON Administration Vancomycin HCl 1.25 gm/ Sodium 250 mls @ 166.667 mls/hr 09/01/19 10:00 12:16 Chloride IVPB 250 mls 1000,2200 LARON Administration Insulin Human Lispro 0 units 08/30/19 22:33 08/31/19 20:33 Humalog SC 5 unit .BEDTIME SLIDING SC PRN Administration Bedtime Correctional Scale Insulin Human Lispro 0 units 08/31/19 14:35 09/01/19 15:58 Humalog SC 2 unit .AGGRESSIVE SLIDING PRN Administration Aggressive Correctional Scale Magnesium Hydroxide 30 ml 08/29/19 21:53 08/31/19 14:26 Milk Of Magnesium PO 30 ml DAILY PRN Administration Constipation Morphine Sulfate 4 mg 08/29/19 21:53 09/03/19 18:26 Morphine SLOW IVP 4 mg Q2H PRN Administration Severe Pain (7-10) Ondansetron HCl 4 mg 08/29/19 21:53 08/31/19 14:23 Zofran IV 4 mg Q6H PRN Administration Nausea Simvastatin 10 mg 08/30/19 21:00 09/02/19 21:39 Zocor PO 10 mg HS LARON Administration Tramadol HCl 50 mg 08/29/19 21:53 08/31/19 08:04 Ultram PO 50 mg Q6H PRN Administration Mild Pain (1-3) - Exam General Appearance: NAD, awake alert ENT: normocephalic atraumatic, no oropharyngeal lesions, moist mucosa Heart: RRR, no murmur, no gallops, no rubs, normal peripheral pulses Respiratory: CTAB, no wheezes, no rales, no ronchi, normal chest expansion, no tachypnea, normal percussion Gastrointestinal: soft, non-tender, non-distended, normal bowel sounds, no palpable masses, no hepatomegaly, no splenomegaly, no bruit Extremities - other findings: dressing over right hand with no surrounding swelling or erythema Psychiatric: normal affect, normal behavior, A&O x 3 Hosp A/P - Plan #osteomyelitis of left index finger s/p I&D -pain well controlled -IV antibiotics as per ID; discharge pending obtaining outpatient antibiotics #HTN poorly controlled coisdering CKD and T2DM, started lisinopril; attempt to wean off hydralazine and clonidine as outpatient #T2DM poorly controlled changed to lantus 40 qam, humalog 13u ac, and moderate correction scale based on insulin requirements and sensitivity ELOS: 1 night
[2019-09-03] MEDS ORDERED: HumaLOG 300 UNITS/3 ML VIAL SC PRN (20:21)
[2019-09-03] MEDS ORDERED: Lisinopril 20 MG TAB PO SCH (20:30)
[2019-09-03] MEDS: Simvastatin 5 MG TAB PO SCH (21:10)
[2019-09-03] MEDS: HumaLOG 300 UNITS/3 ML VIAL SC PRN (21:18)
[2019-09-04] MEDS: HYDROcodone/Acetaminophen 5/325 mg Tablet PO PRN ×3 (04:19→18:44)
[2019-09-04] MEDS: hydrALAZINE 25 MG TAB PO SCH ×3 (08:33→20:21)
[2019-09-04] MEDS: HumaLOG 300 UNITS/3 ML VIAL SC SCH ×3 (08:37→18:42)
[2019-09-04] MEDS: Gabapentin 300 MG CAP PO SCH ×2 (08:38→20:21)
[2019-09-04] MEDS: Aspirin 81 mg Enteric Coated Tablet PO SCH ×2 (08:38→20:22)
[2019-09-04] MEDS: Lisinopril 20 MG TAB PO SCH (08:38)
[2019-09-04] MEDS: Amlodipine 10 MG TAB PO SCH (08:38)
[2019-09-04] MEDS: Alogliptin 6.25 MG TAB PO SCH (08:39)
[2019-09-04] MEDS: Sodium Chloride 0.9% 1,000 ML IV SCH (08:40)
[2019-09-04] MEDS: Morphine 4 MG/ML VIAL SLOW IVP PRN (08:41)
[2019-09-04] MEDS ORDERED: Insulin Glargine 40 UNITS in Pre-Filled Syringe 1 EACH SC SCH (09:00)
[2019-09-04] MEDS: Carvedilol 3.125 MG TAB PO SCH ×2 (09:43→20:22)
[2019-09-04] MEDS: hydrALAZINE 20 MG/ML VIAL SLOW IVP PRN (10:44)
[2019-09-04] MEDS: Vancomycin HCl 1.25 GM in Sodium Chloride 0.9% 250 ML 250 ML IVPB SCH ×2 (12:02→21:45)
[2019-09-04] MEDS: cloNIDine 0.1 MG TAB PO PRN ×2 (12:06→21:45)
[2019-09-04] MEDS ORDERED: HumaLOG 300 UNITS/3 ML VIAL SC SCH ×2 (12:30→17:00)
--- NOTE | 2019-09-04 14:43 | PDOC.HOSPP ---
- Subjective Encounter Date: 09/04/19 Encounter Time: 11:00 Subjective: no overnight events. This morning, glucose better controlled but in afternoon symptomatic hypoglycemia resolved after orange juice. Reduced insulin regimen. Has no complaints. Pending discharge after outpatient medications arranged. CM onboard - Objective Vital Signs & Weight: Vital Signs (12 hours) Temp Pulse Resp BP BP Pulse Ox 09/04/19 12:06 172/77 H 09/04/19 10:44 75 184/94 H 09/04/19 10:37 98.3 F 84 16 213/84 H 96 09/04/19 08:38 75 182/83 H 09/04/19 08:33 75 182/83 H 09/04/19 07:20 98.2 F 75 16 182/83 H 95 09/04/19 04:21 74 175/77 H Weight Admit Weight 162 lb 11.2 oz Weight 162 lb 11.2 oz I&O: 09/03/19 09/04/19 09/05/19 06:59 06:59 06:59 Intake Total 1000 Output Total 750 600 Balance 250 -600 Result Diagrams: 08/31/19 05:25 08/31/19 05:25 Additional Labs: Accuchecks 09/04/19 09/04/19 09/04/19 14:02 13:18 10:38 POC Glucose 115 H 49 L* 90 09/04/19 09/03/19 09/03/19 05:54 21:18 15:44 POC Glucose 118 H 238 H 246 H Hospitalist ROS - Review of Systems Constitutional: denies: fever, chills, sweats, weakness, malaise, other Respiratory: denies: cough, dry, shortness of breath, hemoptysis, SOB with excertion, pleuritic pain, sputum, wheezing, other Cardiovascular: denies: chest pain, palpitations, orthopnea, paroxysmal noc. dyspnea, edema, light headedness, other Gastrointestinal: denies: nausea, vomiting, abdominal pain, diarrhea, constipation, melena, hematochezia, other - Medication Medications: Active Medications Generic Name Dose Route Start Last Admin Trade Name Freq PRN Reason Stop Dose Admin Hydrocodone Bitart/Acetaminophen 1 tab 08/29/19 21:53 09/04/19 08:41 [place] 5/325 PO 1 tab Q4H PRN Administration Moderate Pain (4-6) Alogliptin Benzoate 12.5 mg 08/31/19 09:00 09/04/19 08:39 Alogliptin PO 12.5 mg DAILY LARON Administration Amlodipine Besylate 10 mg 09/01/19 09:00 09/04/19 08:38 Norvasc PO 10 mg DAILY LARON Administration Aspirin 81 mg 08/30/19 09:00 09/04/19 08:38 Ecotrin PO 81 mg BID LARON Administration Carvedilol 3.125 mg 08/30/19 21:00 09/04/19 09:43 Coreg PO 3.125 mg BID LARON Administration Clonidine 0.1 mg 09/01/19 10:07 09/04/19 12:06 Catapres PO 0.1 mg Q4H PRN Administration SBP Greater Than 170 Gabapentin 300 mg 08/30/19 21:00 09/04/19 08:38 Neurontin PO 300 mg BID LARON Administration Hydralazine HCl 10 mg 08/30/19 12:44 09/04/19 10:44 Apresoline SLOW IVP 10 mg Q6H PRN Administration SBP Greater Than 170 Hydralazine HCl 100 mg 08/30/19 15:00 09/04/19 08:33 Apresoline PO 100 mg TID LARON Administration Dextrose/Water 1,000 mls @ 0 mls/hr 08/30/19 12:43 09/02/19 05:27 D5w IV 1,000 mls .Q0M PRN Administration Hypoglycemia As Directed Sodium Chloride 1,000 mls @ 70 mls/hr 08/30/19 14:15 09/04/19 08:40 Normal Saline 0.9% IV 1,000 mls .[id number] LARON Administration Vancomycin HCl 1.25 gm/ Sodium 250 mls @ 166.667 mls/hr 09/01/19 10:00 12:02 Chloride IVPB 250 mls 1000,2200 LARON Administration Insulin Human Lispro 0 units 08/30/19 22:33 09/03/19 21:18 Humalog SC 2 unit .BEDTIME SLIDING SC PRN Administration Bedtime Correctional Scale Lisinopril 20 mg 09/04/19 09:00 09/04/19 08:38 Zestril PO 20 mg DAILY LARON Administration Magnesium Hydroxide 30 ml 08/29/19 21:53 08/31/19 14:26 Milk Of Magnesium PO 30 ml DAILY PRN Administration Constipation Morphine Sulfate 4 mg 08/29/19 21:53 09/04/19 08:41 Morphine SLOW IVP 4 mg Q2H PRN Administration Severe Pain (7-10) Ondansetron HCl 4 mg 08/29/19 21:53 08/31/19 14:23 Zofran IV 4 mg Q6H PRN Administration Nausea Simvastatin 10 mg 08/30/19 21:00 09/03/19 21:10 Zocor PO 10 mg HS LARON Administration Tramadol HCl 50 mg 08/29/19 21:53 08/31/19 08:04 Ultram PO 50 mg Q6H PRN Administration Mild Pain (1-3) - Exam General Appearance: NAD, awake alert Eye: PERRL Heart: RRR, no murmur, no gallops, no rubs Respiratory: CTAB, no wheezes, no rales, no ronchi Gastrointestinal: soft, non-tender, non-distended, normal bowel sounds Extremities - other findings: clean dressing over left index finger Hosp A/P - Plan #osteomyelitis of left index finger s/p I&D -pain well controlled -IV antibiotics as per ID; discharge pending obtaining outpatient antibiotics #HTN poorly controlled continue lisinopril; attempt to wean off hydralazine and clonidine as outpatient #T2DM poorly controlled changed to lantus 40 qam, humalog 13u ac, and moderate correction scale based on insulin requirements and sensitivity (09/02) but became hypoglycemic postprandially; reduced insulin regimen. postprandial goal 70-130, random 140- 180 ELOS: 1 night
--- NOTE | 2019-09-04 15:09 | OP ---
DATE OF PROCEDURE: 09/02/2019 PREOPERATIVE DIAGNOSES: 1. Open wound with history of osteomyelitis, intra-articular spread, involving the base of middle phalanx and head and neck of the proximal phalanx. 2. Open wound with abscess. PROCEDURES PERFORMED: 1. Debridement of wound: Both the dorsal and palmar wound were debrided today. 2. Debridement of bone and joint: Both debridements involved use of excision technique with the following: a. Instrumentation, curette, 8 L total of Pulsavac, and after multiple debridements, tenotomy scissors, Barber blade, Adson. b. Excisional technique. c. Depth was throughout the entire joint to include both sides as we opened the volar side for 3 cm to make sure there is no infection here and there was none. 3. Antibiotic bead exchange. COMPLICATIONS: None. TOURNIQUET TIME: 21 minutes. ESTIMATED BLOOD LOSS: Less than 20 mL. INJECTION: Yes, 20 mL of 0.5% Marcaine given, 10 before the procedure and 10 after. ANESTHESIA: General LMA technique. DESCRIPTION OF PROCEDURE: After successful anesthesia listed above, the limb was prepped and draped. We then exsanguinated the limb, inflated the tourniquet to 250 mmHg pressure. We removed all of the antibiotic beads, and we counted and there were seven, so we took a photograph and radiographs and did not show any further beads in the wound. We then dissected circumferentially using tenotomy scissors and began debridement of any areas that showed tissue necrosis, which only was seen at the flap of the dorsal skin on the radial side, that will be used for closure later. We then dissected down to the volar plate and bone on both sides, interosseous canal was debrided with a curette, and then we were able to completely visualize under the tendon and began debridement using those techniques at all those areas. This included some bone. After debridement, we then turned attention to the volar side, opened up the central 3 cm of the 5 cm wound, dissected around the joint, visualized volar plate, saw no gross purulence, removed some denuded fat using the same instruments as listed for the other debridement. The patient now had the first 5 L completed for irrigation and then we took a sample of bone from the intra-articular base of the proximal phalanx and the intra-articular base of the middle phalanx, both sides at the joint. We also took a sample of debrided tenosynovium over the extensor mechanism proximal 1/3 of wound. Once we had done all this, we waited for pathologist who called in and we were able to obtain the fact that there were 25 to 50 high-power field WBCs without bacteria seen and both bones had less than 5 seen over the tendon sheath, so we decided to close over the tendon sheath. The tourniquet was now deflated. We then began antibiotic bead preparation at the same time we also waited for the high-power field results, which showed 25 to 50 at both bone sites and less than 5 at the extensor tendon, so we closed the part of the wound over the extensor tendon, leaving the bone part open and packed all the rest of the wound to include interosseous canal for both bones around the proximal phalangeal joint with appropriate milieu. Then, we closed with 3-0 nylon in simple pattern without undue tension in the proximal 1/3 of the wound, leaving only the distal 2/3 including the joint unclosed. Antibiotic beads were placed in a whole 360 degree watch formation. Finally, the wound was dressed with normal saline wet-to-dry dressing and no evidence of infection was seen grossly. Job ID: [id number]
[2019-09-04] MEDS: Simvastatin 5 MG TAB PO SCH (20:21)
[2019-09-04] MEDS: traMADol HCl 50 MG TAB PO PRN (20:26)
[2019-09-05] MEDS: HYDROcodone/Acetaminophen 5/325 mg Tablet PO PRN ×3 (05:57→20:35)
[2019-09-05] MEDS: Milk Of Magnesia 30 ML UDCUP PO PRN (05:58)
[2019-09-05] MEDS: HumaLOG 300 UNITS/3 ML VIAL SC SCH ×3 (08:30→17:48)
[2019-09-05] MEDS: Insulin Glargine 25 UNITS in Pre-Filled Syringe SC SCH (08:30)
[2019-09-05] MEDS: Alogliptin 6.25 MG TAB PO SCH (08:31)
[2019-09-05] MEDS: Aspirin 81 mg Enteric Coated Tablet PO SCH ×2 (08:31→20:36)
[2019-09-05] MEDS: Gabapentin 300 MG CAP PO SCH ×2 (08:31→20:37)
[2019-09-05] MEDS: Amlodipine 10 MG TAB PO SCH (08:31)
[2019-09-05] MEDS: hydrALAZINE 25 MG TAB PO SCH ×3 (08:31→20:37)
[2019-09-05] MEDS: Carvedilol 3.125 MG TAB PO SCH ×2 (08:31→20:37)
[2019-09-05] MEDS: Lisinopril 20 MG TAB PO SCH (08:31)
[2019-09-05] MEDS ORDERED: Insulin Glargine 30 UNITS in Pre-Filled Syringe SC SCH (09:00)
[2019-09-05 09:22] LABS: Vancomycin, Trough 30.5 ug/mL
[2019-09-05 10:38] LABS: #Basophils 0.1 thou/uL (0.0-0.2); #Eosinphils 0.3 thou/uL (0.0-0.7); #Lymphocytes 1.2 thou/uL (1.20-3.40); #Monocytes 0.7 thou/uL (0.11-0.59); #Neutrophils 5.3 thou/uL (1.40-6.50); %Basophils 0.8 % (0.0-1.0); %Eosinophils 3.9 % (0.0-10.0); %Lymphocytes 16.2 % (21.0-51.0); %Monocytes 9.5 % (0.0-10.0); %Neutrophils 69.6 % (42.0-75.0); Hemoglobin 10.9 g/dL (14.0-18.0); Mean Corpuscular HGB CONC 34.1 g/dL (32.0-36.0); Mean Corpuscular Hemoglobin 29.1 pg (27.0-31.0); Mean Corpuscular Volume 85.3 fL (78.0-98.0); Mean Platelet Volume 8.7 fL (7.4-10.4); Platelet Count 242 thou/uL (130-400); RBC Distribution Width 12.7 % (11.5-14.5); Red Blood Cell (RBC) Count 3.76 mill/uL (4.70-6.10); White Blood Cell (WBC) Count 7.6 thou/uL (4.8-10.8)
[2019-09-05 11:06] LABS: Anion Gap 11 mmol/L (10-20); BUN (Urea Nitrogen) 18 mg/dL (8.4-25.7); Calc. Creatinine Clearance 48 mL/min (70-130); Calcium 8.9 mg/dL (7.8-10.44); Carbon Dioxide 25 mmol/L (23-31); Chloride 109 mmol/L (98-107); Estimated GFR-MDRD 51; Glucose 200 mg/dL (80-115); Potassium 4.5 mmol/L (3.5-5.1); Sodium 140 mmol/L (136-145)
--- NOTE | 2019-09-05 15:58 | PDOC.HOSPP ---
- Subjective Encounter Date: 09/05/19 Encounter Time: 10:00 Subjective: no overnight events. Blood pressure and blood glucose better controlled overnight. This morning, feeling well and has no complaints. Pending I&D tomorrow - Objective Vital Signs & Weight: Vital Signs (12 hours) Temp Pulse Resp BP BP Pulse Ox 09/05/19 14:56 72 164/90 H 09/05/19 11:00 97.8 F 72 14 164/90 H 98 09/05/19 08:31 153/74 H 09/05/19 07:55 97.8 F 66 18 153/74 H 98 Weight Admit Weight 162 lb 11.2 oz Weight 162 lb 11.2 oz I&O: 09/04/19 09/05/19 09/06/19 06:59 06:59 06:59 Intake Total 550 Output Total 600 Balance -600 550 Result Diagrams: 09/05/19 10:15 09/05/19 10:15 Additional Labs: Accuchecks 09/05/19 09/05/19 09/04/19 11:52 05:40 21:12 POC Glucose 154 H 131 H 173 H 09/04/19 15:35 POC Glucose 200 H Hospitalist ROS - Review of Systems Constitutional: denies: fever, chills, sweats Respiratory: denies: cough, dry, shortness of breath, hemoptysis Cardiovascular: denies: chest pain, palpitations, orthopnea, paroxysmal noc. dyspnea Musculoskeletal: denies: hand pain - Medication Medications: Active Medications Generic Name Dose Route Start Last Admin Trade Name Freq PRN Reason Stop Dose Admin Hydrocodone Bitart/Acetaminophen 1 tab 08/29/19 21:53 09/05/19 14:55 [place] 5/325 PO 1 tab Q4H PRN Administration Moderate Pain (4-6) Alogliptin Benzoate 12.5 mg 08/31/19 09:00 09/05/19 08:31 Alogliptin PO 12.5 mg DAILY LARON Administration Amlodipine Besylate 10 mg 09/01/19 09:00 09/05/19 08:31 Norvasc PO 10 mg DAILY LARON Administration Aspirin 81 mg 08/30/19 09:00 09/05/19 08:31 Ecotrin PO 81 mg BID LARON Administration Carvedilol 3.125 mg 08/30/19 21:00 09/05/19 08:31 Coreg PO 3.125 mg BID LARON Administration Clonidine 0.1 mg 09/01/19 10:07 09/04/19 21:45 Catapres PO 0.1 mg Q4H PRN Administration SBP Greater Than 170 Gabapentin 300 mg 08/30/19 21:00 09/05/19 08:31 Neurontin PO 300 mg BID LARON Administration Hydralazine HCl 10 mg 08/30/19 12:44 09/04/19 10:44 Apresoline SLOW IVP 10 mg Q6H PRN Administration SBP Greater Than 170 Hydralazine HCl 100 mg 08/30/19 15:00 09/05/19 14:56 Apresoline PO 100 mg TID LARON Administration Dextrose/Water 1,000 mls @ 0 mls/hr 08/30/19 12:43 09/02/19 05:27 D5w IV 1,000 mls .Q0M PRN Administration Hypoglycemia As Directed Insulin Glargine 25 units/ 0.25 mls @ 0 mls/hr 09/05/19 09:00 09/05/19 08:30 Miscellaneous Medication SC 0.25 mls DAILY LARON Administration As Directed Insulin Human Lispro 0 units 08/30/19 22:33 09/03/19 21:18 Humalog SC 2 unit .BEDTIME SLIDING SC PRN Administration Bedtime Correctional Scale Insulin Human Lispro 8 units 09/04/19 17:00 09/05/19 13:11 Humalog SC 8 unit TID-WM LARON Administration Lisinopril 20 mg 09/04/19 09:00 09/05/19 08:31 Zestril PO 20 mg DAILY LARON Administration Magnesium Hydroxide 30 ml 08/29/19 21:53 09/05/19 05:58 Milk Of Magnesium PO 30 ml DAILY PRN Administration Constipation Morphine Sulfate 4 mg 08/29/19 21:53 09/04/19 08:41 Morphine SLOW IVP 4 mg Q2H PRN Administration Severe Pain (7-10) Ondansetron HCl 4 mg 08/29/19 21:53 08/31/19 14:23 Zofran IV 4 mg Q6H PRN Administration Nausea Simvastatin 10 mg 08/30/19 21:00 09/04/19 20:21 Zocor PO 10 mg HS LARON Administration Tramadol HCl 50 mg 08/29/19 21:53 09/04/19 20:26 Ultram PO 50 mg Q6H PRN Administration Mild Pain (1-3) - Exam General Appearance: NAD, awake alert Neck: no JVD Heart: RRR, no murmur, no gallops, no rubs Respiratory: CTAB, no wheezes, no rales, no ronchi Gastrointestinal: soft, non-tender, non-distended, normal bowel sounds Extremities - other findings: dressings over left index finger, clean Psychiatric: normal affect, normal behavior, A&O x 3 Hosp A/P - Plan #osteomyelitis of left index finger s/p I&D -pain well controlled -IV antibiotics as per ID; pending additional I&D #HTN better controlled; continue same regimen; attempt to wean off hydralazine and clonidine as outpatient #T2DM better controlled; continue same regimen. ELOS: 1 night
[2019-09-05] MEDS: Morphine 4 MG/ML VIAL SLOW IVP PRN (17:47)
[2019-09-05] MEDS: cloNIDine 0.1 MG TAB PO PRN (17:47)
--- NOTE | 2019-09-05 18:09 | PRG ---
DATE OF SERVICE: 09/05/2019 SUBJECTIVE: The patient had another procedure on 09/01, this was debridement again. The evaluation under microscope showed still too many WBCs, so the patient was not ready for a graft and Dr. Menendez stated that he is going to try again tomorrow and see if he can put a graft on. Subsequently, once the antimicrobial therapy is finished, then fixed the fracture. No other symptoms. OBJECTIVE: VITAL SIGNS: Stable. He is afebrile. LUNGS: Clear. HEART: S1 and S2. Regular rate. ABDOMEN: Soft. LABORATORY DATA: White cell count 7.6, hemoglobin 10, platelets 242. Creatinine 1.65. Microbiology with Staph aureus, MRSA, E faecalis, P aeruginosa, and the treatment scheduled is vancomycin and levofloxacin. Once discharged, he will be on daptomycin and Cipro for about 4 weeks. Job ID: [id number]
[2019-09-05] MEDS: Simvastatin 5 MG TAB PO SCH (20:36)
[2019-09-05] MEDS: Ciprofloxacin 500 MG TAB PO SCH (20:36)
[2019-09-06] MEDS: HYDROcodone/Acetaminophen 5/325 mg Tablet PO PRN ×2 (03:59→15:17)
[2019-09-06] MEDS: cloNIDine 0.1 MG TAB PO PRN (04:00)
[2019-09-06] MEDS: Ciprofloxacin 500 MG TAB PO SCH (05:16)
[2019-09-06] MEDS: Carvedilol 3.125 MG TAB PO SCH (05:54)
[2019-09-06] MEDS ORDERED: Bupivacaine PF 0.5% 30 ML VIAL ONE (06:23)
[2019-09-06] MEDS ORDERED: Bacitracin Zinc Ointment 30 gm TUBE ONE (06:23)
[2019-09-06] MEDS ORDERED: Thrombin 5000 UNITS/5 ML VIAL ONE (06:23)
[2019-09-06] MEDS ORDERED: Sodium Chloride 0.9% 10 ML ONE (06:23)
[2019-09-06] MEDS ORDERED: Fentanyl 100 MCG/2 ML VIAL ONE (06:25)
[2019-09-06] MEDS ORDERED: Midazolam HCl 2 mg/2 ml Vial ONE (06:25)
[2019-09-06] MEDS ORDERED: Sodium Chloride 0.9% 30 ML ONE (07:53)
[2019-09-06] MEDS ORDERED: Tobramycin Sulfate 1.2 GM VIAL ONE (08:19)
[2019-09-06] MEDS: HumaLOG 300 UNITS/3 ML VIAL SC SCH ×3 (09:18→17:54)
[2019-09-06] MEDS: Alogliptin 6.25 MG TAB PO SCH (09:18)
[2019-09-06] MEDS: Gabapentin 300 MG CAP PO SCH (09:19)
[2019-09-06] MEDS: Aspirin 81 mg Enteric Coated Tablet PO SCH (09:19)
[2019-09-06] MEDS: Lisinopril 20 MG TAB PO SCH (09:19)
[2019-09-06] MEDS: hydrALAZINE 25 MG TAB PO SCH ×2 (09:19→17:49)
[2019-09-06] MEDS: Insulin Glargine 25 UNITS in Pre-Filled Syringe SC SCH (09:19)
[2019-09-06] MEDS: Amlodipine 10 MG TAB PO SCH (09:19)
[2019-09-06] MEDS ORDERED: Promethazine HCl 25 MG/ML VIAL IM PRN (09:51)
[2019-09-06] MEDS ORDERED: Promethazine HCl 25 MG/ML VIAL SLOW IVP PRN (09:51)
[2019-09-06] MEDS ORDERED: Ondansetron HCl/PF 4 MG/2 ML Vial IVP PRN (09:51)
[2019-09-06] MEDS ORDERED: Vancomycin HCl 1.25 GM in Sodium Chloride 0.9% 250 ML 250 ML IVPB SCH (10:00)
[2019-09-06] MEDS: Morphine 4 MG/ML VIAL SLOW IVP PRN (12:45)
[2019-09-06] MEDS ORDERED: PHENYLEPHRINE-NS 100 MCG/ML 10 ML SYRINGE ONE (12:50)
[2019-09-06] MEDS ORDERED: Lidocaine 1% PF 5 ML VIAL ONE (12:50)
[2019-09-06] MEDS ORDERED: Ondansetron PF 4 MG/2 ML Vial ONE (12:50)
[2019-09-06] MEDS ORDERED: PROPOFOL 200 MG/20 ML VIAL ONE (12:50)
[2019-09-06] MEDS ORDERED: Glycopyrrolate 0.2 MG/ML 5 ML SYRINGE ONE (12:50)
[2019-09-06] MEDS ORDERED: EPHEDRINE 25 MG/5 ML SYRINGE ONE (12:50)
[2019-09-06] MEDS ORDERED: DAPTOmycin 500 MG VIAL SLOW IVP SCH (15:45)
[2019-09-06] MEDS ORDERED: DAPTOmycin 500 MG in Sodium Chloride 0.9% 100 ML IVPB SCH (17:00)
[2019-09-06 17:07] VITALS: BP 148/83; TEMP 97.9
[2019-09-06] MEDS ORDERED: Carvedilol 3.125 MG TAB PO SCH (21:00)
--- NOTE | 2019-09-07 00:33 | OP ---
DATE OF PROCEDURE: 09/06/2019 PREOPERATIVE DIAGNOSIS: Left index finger wound with osteomyelitis. POSTOPERATIVE DIAGNOSES: Left index finger with wound osteomyelitis of the index fingers, ulna, middle phalanx process with loss of bone integrity. FINDINGS: 1. No gross infection. 2. Bone samples from the base of the middle phalanx and the head, condyle bone of the proximal phalanx. It showed both the middle phalanx and proximal phalanx aspect of the intra-articular wound, there was no white blood cells and zero neutrophils per high-power field. PROCEDURE PERFORMED: 1. Bone debridement 78402 with joint. 2. Closure of 3 cm wound. 3. 1.5 x 1.0 cm Integra graft. 4. Antibiotic bead removal, absorbable and antibody exchange, nonbiodegradable spacer antibiotic beads (tobramycin powder). TOURNIQUET TIME: 22 minutes. ESTIMATED BLOOD LOSS: 20 mL. Bone biopsy sent as listed above for white blood cells per high-power field, brought intra op as a stat frozen section. Confirmed via call directly with pathologist. INDICATIONS: Patient returned for staged wound management after just 4 days ago, awaited IV antibiotic placement and having 20 more white blood cells per high-power field in the bone sample making it highly unlikely that closure could be accomplished without abscess formation, so we did not close the wound. He had a biodegradable/absorbable antibiotic beads with tobramycin powder placed on the wound, and returned for stage wound management today. DESCRIPTION OF PROCEDURE: After successful general endotracheal anesthesia, limb prepped and draped. Time-out was done appropriately. 10 mL of 0.5% Marcaine block at metacarpophalangeal joint level. He had some mild edema of the index finger and the long finger and minimal edema of the small and ring, but there was very tight intrinsics and MP joint capsule of all digits to include the lesser 3. He had his incisions opened, inspected, we debrided some of the distal 3 mm of the central portion extensor mechanism which had become an eschar. We then removed all the biodegradable antibiotic beads, curetted out the cavity where it had been kept, finished our excisional debridement with tenotomy scissors, a small rongeur, and then we debrided with a large 3 mm curette to interosseous cavity. We then took a sample of this bone and sent it to the pathologist for evaluation from the base of the middle phalanx and the head/neck subchondral bone of the proximal phalanx for neutrophils per high-power field. We then irrigated and pulse lavaged with 5 L normal saline and then we realized that we could close this, but we still had approximately 1.5 cm defect. We then mixed antibiotic beads on the back table because we now removed all the absorbable and this included tobramycin powder and we formed it in the formation of the cement space that we filled the joint and had a limb that would fit inside the interosseous canal of both the proximal phalanx and the middle phalanx at this joint. Once we had done this, we released the tourniquet, we waited for the reading from the pathology which was favorable showing zero neutrophils per high-power field in both samples. We then closed the skin 3 cm proximal to the joint and beginning 1 cm distal joint for 5 mm. Then, we realized we could not close more and we placed the antibiotic spacer into the debrided cavity at approximately 15 degrees of flexion. The digit was pink with one second refill. We then covered the defect and cutback the antibiotic spacer so that an Integra graft of 1.5 x 1.0 cm could fall on the subcutaneous tissue and we bolstered it as such after stapling and sutured it in place. The patient then left the operating room with a pink digit, bulky dressing and we placed him in a splint, dorsal block to relax intrinsic at 35 to 40 degrees of wrist dorsiflexion and 75 degrees of MP joint flexion with the DIP free and PIPs of the non-operative lesser digits. Job ID: [id number]
[2019-09-07 09:38] LABS: Fungus Stain Final report (.); Fungus Stain Result 1 Yeast observed (.)
[2019-09-07 09:38] LABS: Fungus Stain Final report (.)
[2019-09-13 13:38] LABS: Fungus Culture Final report (.)
[2019-09-13 13:38] LABS: Fungus Culture Final report (.)
== END 2019-09-06 19:03 | disposition home or self-care (01) | DRG 857 ==
LOC: SDC 01:14 → SURG A 01:16 → OBSVTOIN 08-31 16:55
PROVIDERS: ADMIT Orthopaedic Surgery Hand Surgery; ATTEND Orthopaedic Surgery Hand Surgery
PROC: 0RBW0ZZ Excision of Right Finger Phalangeal Joint, Open Approach (ICD-10-PCS; principal; 2019-09-02)
PROC: 0RBX0ZZ Excision of Left Finger Phalangeal Joint, Open Approach (ICD-10-PCS; 2019-09-02)
PROC: 02HV33Z Insertion of Infusion Device into Superior Vena Cava, Percutaneous Approach (ICD-10-PCS; 2019-09-02)
PROC: B548ZZA Ultrasonography of Superior Vena Cava, Guidance (ICD-10-PCS; 2019-09-02)
PROC: B5181ZA Fluoroscopy of Superior Vena Cava using Low Osmolar Contrast, Guidance (ICD-10-PCS; 2019-09-02)
PROC: 0RBW0ZZ Excision of Right Finger Phalangeal Joint, Open Approach (ICD-10-PCS; 2019-09-06)
PROC: 0RBX0ZZ Excision of Left Finger Phalangeal Joint, Open Approach (ICD-10-PCS; 2019-09-06)
DX: T81.49XA Infection following a procedure, other surgical site, initial encounter (principal); M86.8X4 Other osteomyelitis, hand; E11.69 Type 2 diabetes mellitus with other specified complication; E11.22 Type 2 diabetes mellitus with diabetic chronic kidney disease; N18.3 Chronic kidney disease, stage 3 (moderate); E78.5 Hyperlipidemia, unspecified; I12.9 Hypertensive chronic kidney disease with stage 1 through stage 4 chronic kidney disease, or unspecified chronic kidney disease; M85.842 Other specified disorders of bone density and structure, left hand; Y83.9 Surgical procedure, unspecified as the cause of abnormal reaction of the patient, or of later complication, without mention of misadventure at the time of the procedure; N40.0 Benign prostatic hyperplasia without lower urinary tract symptoms; Z79.4 Long term (current) use of insulin
CPT/HCPCS: 36415; 36416; 36569; 76000; 80048; 80053; 80202; 83036; 85025; 85652; 86140; 87070; 87077; 87102; 87186; 87205; 87206; 88304; 88305; 88307; 88311; 88331; 90471; 90732; 96365; 96375; 96376; C1713; C1751; C9363-KX-JC; G0009; G0378; J0360; J0878; J1644; J1815; J1885; J2250; J2270; J2405; J2704; J3010; J3260; J3370; J3490; J7050; S0020

== ENCOUNTER 2019-09-30 05:24 | Outpatient (CLI) | payer OTHER ==
[2019-09-30 14:01] LABS: #Basophils 0.1 thou/uL (0.0-0.2); #Eosinphils 0.4 thou/uL (0.0-0.7); #Lymphocytes 1.9 thou/uL (1.20-3.40); #Monocytes 0.5 thou/uL (0.11-0.59); #Neutrophils 3.6 thou/uL (1.40-6.50); %Basophils 1.2 % (0.0-1.0); %Eosinophils 5.6 % (0.0-10.0); %Lymphocytes 29.5 % (21.0-51.0); %Monocytes 8.2 % (0.0-10.0); %Neutrophils 55.5 % (42.0-75.0); Hemoglobin 11.3 g/dL (14.0-18.0); Mean Corpuscular HGB CONC 34.4 g/dL (32.0-36.0); Mean Corpuscular Hemoglobin 29.1 pg (27.0-31.0); Mean Corpuscular Volume 84.6 fL (78.0-98.0); Mean Platelet Volume 9.9 fL (7.4-10.4); Platelet Count 208 thou/uL (130-400); RBC Distribution Width 12.8 % (11.5-14.5); Red Blood Cell (RBC) Count 3.88 mill/uL (4.70-6.10); White Blood Cell (WBC) Count 6.4 thou/uL (4.8-10.8)
[2019-09-30 14:18] LABS: Anion Gap 14 mmol/L (10-20); BUN (Urea Nitrogen) 22 mg/dL (8.4-25.7); Calc. Creatinine Clearance 0 mL/min (70-130); Carbon Dioxide 19 mmol/L (23-31); Chloride 110 mmol/L (98-107); Estimated GFR-MDRD 47; Glucose 231 mg/dL (80-115); Potassium 4.4 mmol/L (3.5-5.1); Sodium 139 mmol/L (136-145)
[2019-09-30 14:19] LABS: Bacteria/HPF None Seen HPF (None Seen); Bilirubin Negative (Negative); Blood, Urine Negative (Negative); Clarity Clear (Clear); Glucose, Urine (Dipstick) Normal (Negative); Ketone, Urine Negative (Negative); Leukocyte 25 Leu/uL (Negative); Nitrite Negative (Negative); Protein, Urine (Dipstick) Negative (Neg-Trace); RBC/HPF 0-3 HPF (0-3); Specific Gravity, Urine 1.014 (1.002-1.036); Squamous Epithelial 0-3 HPF (0-3); Urobilinogen Normal mg/dL (Less than 2); WBC/HPF 0-3 HPF (0-3); pH, Urine 5.5 (5.0-9.0)
[2019-10-01 14:41] LABS: SARS-CoV-2 MS2 Positive; SARS-CoV-2 N Gene Negative; SARS-CoV-2 S Gene Negative; SARS-CoV-2 by NAA Not Detected (NotDetected); SARS-CoV-2 orf1ab Negative
== END 2019-09-30 05:25 | disposition home or self-care (01) ==
LOC: LABBT 05:24
PROVIDERS: ATTEND Orthopaedic Surgery Hand Surgery
DX: Z01.812 Encounter for preprocedural laboratory examination (principal); Z11.59 Encounter for screening for other viral diseases; T81.49XA Infection following a procedure, other surgical site, initial encounter
CPT/HCPCS: 80048; 81001; 85025; 87635; 93005; 93010; U0003

== ENCOUNTER 2019-10-04 09:04 | Day surgery (SDC) | payer OTHER ==
[2019-09-29 16:28] VITALS: BMI 25.3
[2019-10-04] MEDS ORDERED: Bupivacaine PF 0.5% 30 ML VIAL ONE (10:20)
[2019-10-04] MEDS ORDERED: Sodium Chloride 0.9% 10 ML ONE (10:20)
[2019-10-04] MEDS ORDERED: Mineral Oil Sterile 10ML 10 ML UDCUP ONE (10:20)
[2019-10-04] MEDS ORDERED: Bacitracin Zinc Ointment 30 gm TUBE ONE (10:20)
[2019-10-04] MEDS ORDERED: HYDROmorphone 0.5 MG/0.5 ML SYRINGE ONE (10:24)
[2019-10-04] MEDS ORDERED: Fentanyl 100 MCG/2 ML VIAL ONE ×2 (10:24→13:33)
[2019-10-04] MEDS ORDERED: Ondansetron PF 4 MG/2 ML Vial ONE (10:59)
[2019-10-04] MEDS ORDERED: Glycopyrrolate 0.2 MG/ML 5 ML SYRINGE ONE (10:59)
[2019-10-04] MEDS ORDERED: Lidocaine 1% PF 5 ML VIAL ONE (10:59)
[2019-10-04] MEDS ORDERED: PROPOFOL 200 MG/20 ML VIAL ONE (10:59)
[2019-10-04] MEDS ORDERED: EPHEDRINE 25 MG/5 ML SYRINGE ONE (10:59)
[2019-10-04] MEDS ORDERED: Dexamethasone 20 MG/5 ML VIAL ONE (10:59)
[2019-10-04] MEDS ORDERED: Tobramycin Sulfate 1.2 GM VIAL ONE (11:23)
[2019-10-04] MEDS ORDERED: HYDROcodone/Acetaminophen 5/325 mg Tablet ONE (15:00)
--- NOTE | 2019-10-05 00:59 | OP ---
DATE OF PROCEDURE: 10/04/2019 PREOPERATIVE DIAGNOSIS: Left index open wound after previous antibiotic beads space (non-dissolvable) for osteomyelitis and application of Integra graft. FINDINGS: Integra graft over 90% intact, with small open distally where we easily could remove the implant, placed more beads, and then closed with skin graft. PROCEDURES PERFORMED: 1. Exchange of antibiotic beads non-dissolvable for dissolvable with gentamicin inside. 2. Full-thickness skin graft 3 x 1 cm harvested from the left ipsilateral antecubital fossa. SPECIMEN REMOVED: The bead. TOURNIQUET TIME: None. INJECTABLE: 10 mL of 0.5% Marcaine, no epinephrine at the metacarpophalangeal joint of the index finger prior to procedure and 10 mL antecubital fossa proximal harvest area. DESCRIPTION OF PROCEDURE: After successful general endotracheal anesthesia, the limb was prepped and draped. The dressing removed. We clearly see the graft was intact. After prep and drape, time-out was done appropriately. We gave the appropriate blocks as described above. We did not inflate the tourniquet. We gently flexed the joint to 90 degrees and we were able to visualize by removing the distal two sutures of the implant and then slide out from underneath the Integra graft without violating it. We then began to mix the tobramycin powder with the dissolvable beads and we took approximately 25 to 30 minutes to cure well enough to be placed. At this time, we harvested the appropriate 3 x 1 cm full-thickness skin graft to place over the Integra, defatted, and saved the normal saline until the beads were ready. We then closed the donor site with a running 4-0 Monocryl for deep dermis and epidermis with 4-0 nylon interrupted simple pattern. Once the beads were ready, packed osteomyelitis had been seen before. In the canal, at the area of the largest part of metaphysis and inside the joint space. We then closed the distal 6 mm with three 4-0 nylon sutures and then we were able to place the graft, bolstered with 4-0 nylon circumferential with running 5-0 chromic. The bolster of mineral oil soaked cotton ball was tied over the bacitracin Adaptic placed right next to graft of the wound. It must be noted the patient had a very stiff digit with active flexion of only 7 degrees and passively it was at 7 degrees. We did close joint manipulation and stretching during the entire time. We were waiting for the antibiotic beads to cure. He left the operating room in a soft dressing over the finger, none on the lesser digits. No evidence of anesthetic or operative complication. Job ID: [id number]
== END 2019-10-04 15:30 | disposition home or self-care (01) ==
LOC: SDC 09:04
PROVIDERS: ATTEND Orthopaedic Surgery Hand Surgery
PROC: 0HRGX73 Replacement of Left Hand Skin with Autologous Tissue Substitute, Full Thickness, External Approach (ICD-10-PCS; principal; 2019-10-04)
PROC: 0RH Upper Joints, Insertion (ICD-10-PCS; principal; 2019-10-04)
DX: T81.49XA Infection following a procedure, other surgical site, initial encounter (principal); I10 Essential (primary) hypertension; E11.9 Type 2 diabetes mellitus without complications; Z79.4 Long term (current) use of insulin; Z79.82 Long term (current) use of aspirin; Z79.899 Other long term (current) drug therapy
CPT/HCPCS: 36416; C1713; J0690; J1100; J1170; J2405; J2704; J3010; J3260; J3490; S0020

== ENCOUNTER 2019-11-04 07:07 | Outpatient (CLI) | payer OTHER ==
[2019-11-04 12:08] LABS: Mean Corpuscular HGB CONC 34.6 g/dL (32.0-36.0); Mean Corpuscular Hemoglobin 30.2 pg (27.0-31.0); Mean Corpuscular Volume 87.3 fL (78.0-98.0); Mean Platelet Volume 9.2 fL (7.4-10.4); Platelet Count 225 thou/uL (130-400); RBC Distribution Width 13.7 % (11.5-14.5); Red Blood Cell (RBC) Count 3.97 mill/uL (4.70-6.10); White Blood Cell (WBC) Count 4.6 thou/uL (4.8-10.8)
[2019-11-04 16:38] LABS: SARS-CoV-2 MS2 Positive; SARS-CoV-2 N Gene Negative; SARS-CoV-2 S Gene Negative; SARS-CoV-2 by NAA Not Detected (NotDetected); SARS-CoV-2 orf1ab Negative
== END 2019-11-04 07:08 | disposition home or self-care (01) ==
LOC: LABBT 07:07
PROVIDERS: ATTEND Orthopaedic Surgery Hand Surgery
DX: Z01.812 Encounter for preprocedural laboratory examination (principal); Z20.828 Contact with and (suspected) exposure to other viral communicable diseases; M20.022 Boutonniere deformity of left finger(s); M24.542 Contracture, left hand; M00.9 Pyogenic arthritis, unspecified
CPT/HCPCS: 85027; 87635; U0003

== ENCOUNTER 2019-11-08 08:33 | Day surgery (SDC) | payer OTHER ==
[2019-11-03 13:55] VITALS: BMI 25.2
[2019-11-08] MEDS ORDERED: Fentanyl 100 MCG/2 ML VIAL ONE ×2 (09:32→10:56)
[2019-11-08] MEDS ORDERED: Midazolam HCl 2 mg/2 ml Vial ONE ×2 (09:32→10:56)
[2019-11-08] MEDS ORDERED: PHENYLEPHRINE-NS 100 MCG/ML 10 ML SYRINGE ONE (09:39)
[2019-11-08] MEDS ORDERED: Ondansetron PF 4 MG/2 ML Vial ONE (09:39)
[2019-11-08] MEDS ORDERED: Bupivacaine HCl 0.5%/Epinephrine 1:200,000/PF 30 ml Vial ONE (09:39)
[2019-11-08] MEDS ORDERED: Lidocaine 1% PF 5 ML VIAL ONE (09:39)
[2019-11-08] MEDS ORDERED: PROPOFOL 200 MG/20 ML VIAL ONE (09:39)
[2019-11-08] MEDS ORDERED: EPHEDRINE 25 MG/5 ML SYRINGE ONE (09:39)
[2019-11-08] MEDS ORDERED: Bupivacaine PF 0.5% 30 ML VIAL ONE (11:39)
[2019-11-08] MEDS ORDERED: Bacitracin Zinc Ointment 30 gm TUBE ONE (11:39)
[2019-11-08] MEDS ORDERED: Sodium Chloride 0.9% 10 ML ONE (11:39)
[2019-11-08] MEDS ORDERED: Betamet Acet/Betamet Na Ph 30 MG/5 ML VIAL ONE (11:39)
[2019-11-08] MEDS ORDERED: Sodium Chloride 0.9% 30 ML ONE (12:07)
--- NOTE | 2019-11-08 14:58 | RAD ---
XR Finger(s) Lt Min 2 View History: Index finger arthrodesis Comparison: Radiograph October 26, 2019 Findings: Multiple fluoroscopic images were obtained. Arthrodesis hardware of the index finger proxim al interphalangeal joint. Impression: Fluoroscopy for surgical purposes.
[2019-11-08] MEDS ORDERED: Ketorolac Tromethamine 30 MG/ML VIAL ONE (16:13)
--- NOTE | 2019-11-09 12:40 | OP ---
DATE OF PROCEDURE: 11/08/2019 PREOPERATIVE DIAGNOSES: 1. 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 2. 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 3. Left small finger, ring finger, middle finger PIP joint, MCP joint contracture, loss of flexion active with passive block as well. PROCEDURES PERFORMED: 1. Left index finger open dorsal capsulectomy metacarpophalangeal joint. 2. Left index finger PIP joint arthrodesis with bicortical bone graft from the ipsilateral distal radius dorsally. 3. C-arm supervision. 4. Left ring finger, middle finger, and small finger metacarpophalangeal joint manipulation at the MP joint. 5. Left ring finger, middle finger, and small finger PIPJ (proximal phalangeal) manipulation. SPECIMENS REMOVED: Soft tissue about the joint. A small amount of bone to reach bone that was bleeding. TOURNIQUET TIME: First was 41 minutes then down for 20 minutes then up for 90 minutes all at 250 mmHg pressure. ESTIMATED BLOOD LOSS: 10 mL total. FINDINGS: 1. No infection grossly under loupe magnification either the bone. Only nonunion site seen. 2. Missing central slip and the extensor mechanism distal 1 cm leaving exposed joint under well-healed skin graft. 3. Tendon adhesions dorsally, especially at the neck of the proximal phalanx at the joint. DESCRIPTION OF PROCEDURE: After successful general endotracheal anesthesia, the limb was prepped and draped. Patient already had a staged wound management where he already had a proven white blood cell count per high-power field of soft tissue being less than 5, and then he had skin graft applied, which is now healed. Thus, he was a candidate for coverage of any fixation that might be used for this problem. After the limb was exsanguinated, tourniquet was inflated to 250 mmHg pressure. He had a block, so no Marcaine was given. We then entered his old incision, carried through skin and subcutaneous tissue and extended it distally by 1 cm, proximally by 2 cm to expose most of the proximal phalanx. We then immediately split the extensor mechanism through its previous partial closure of the distal 1/3 of the proximal phalanx and removed all the Prolene. Removed Prolene distal to the joint. It must be noted that the joint had been completely eroded and although infection was quiescent, there was marked bone and chondral loss. We thus attempted a best fit after debriding the joint using multiple neurosurgical curettes, [place] blade, tenotomy scissors, and irrigation with 3 L normal saline and Pulsavac pressure antibiotic inside. After we had done the debridement and now we achieved the bleeding surface, small rongeur of bone that nearly matched, but did not completely match. Ulnarly, we were able to create a defect where there was bleeding bone seen when the tourniquet was finally deflated, we had removed all the adhesions, and then we were able to free the extensor mechanism enough to be able to place a centralized plate. We wanted to achieve a 25- to 30-degree flexion for the fusion at the PIP joint, so we measured the distances to be appropriate for bone graft after we saw it was clinically intact without infection in this position. We reinflated the tourniquet after we had performed a closed manipulation of the metacarpophalangeal joints of the ring, small, and middle. We did this slowly until we achieved 95 degrees of passive flexion at the MP joint without much spring back and with adequate tenodesis effect. We then performed the same technique from the small, ring, and middle finger at the PIP joint until the distal phalanx, the passively over a 5-minute period of stretch of each digit and then there was still maintained tenodesis effect. At this point, we then waited C-arm to confirm the size and location of the donor graft and while we did this, we released all the extensor mechanism adhesions from the underlying bone from the level of the neurovascular bundle dorsally to the subcutaneous skin tissues. Once this was done, we extended the incision over the metacarpal to a point 1 cm proximal to the metacarpophalangeal joint, and here, dissected down to the junction of the extensor mechanism with the sagittal bands and we elevated these off the bone and made a cut with the [place] blade at the MP joint at the index finger, radial ulnarly. Again, this was not necessary to achieve a good flexion actively at the other digits. Once we finished, the MP joint had passive 95-degree flexion, the index finger was equal to that of the other digits postmanipulation. We then brought the C-arm to the field, re-exsanguinated the limb, inflated tourniquet to 250 mmHg pressure, where we were able to identify the Tory's tubercle and carried incision through this down through skin and subcutaneous tissue over the retinaculum at the junction between the Tory's tubercle and the flexor pollicis longus, preserving its relationship and using this as the distal point for bone graft. A graft that was approximately 5 mm wide and 1 cm long was harvested and it was turned to maximize its bicortical edge when placed in the defect where the defect had already been cleaned and curetted. We then held it temporarily in fixation, measured the position and amount of bone that might be needed for the appropriate procedure and then decided to harvest both the dorsal distal radius. We made a zigzag incision beginning just distal to Tory's tubercle, through skin and subcutaneous tissue. We released the fascia around this tubercle until we found extensor pollicis longus, protected it throughout the entire procedure. At this point, we then elevated the extensor carpi radialis longus and brevis the distal radius and now we had a distal radius to make our cut. Cut was made with a saw blade with TTS handle and then we maximized the angle as we knew we had to angle both sides of the graft to achieve 30 degrees of flexion. Once we had done this, the block bone prepared, placed temporarily in the area of the procedure. We now had a stable construct measured and appropriate angle achieved in the frontal sagittal plane to where we had approximately 15- to 20-degree apex dorsal angulation at the PIP joint for fusion. The graft was then trimmed to fit the defect as since the proximal phalanx in place was much less wide than the standard proximal phalanx as was the base of the middle phalanx. We thus after performing a best fit analysis, remodeled the bone graft so it could good fit, and began fixation from proximal to distal using a [employer] low-profile plate. Once this was in excellent position, we augmented with bone graft before we then placed the distal screws and made sure they were parallel to the appropriate plane to prevent malrotation. This was accomplished. Other bone graft was placed in the interstices between the sutures and any potential defect. We released the tourniquet. The plate was under the extensor mechanism. We then closed the extensor mechanism to the level of 1 cm distal to the joint with an interrupted and buried 4-0 Prolene. Likewise, we obtained hemostasis proximally and closed as much we could with a 4-0 Prolene in same pattern, but still left almost a 1 cm area of no visible abnormality. We then were able to prepare for closure of the remaining portion of this digit. This was done with hemostasis obtained after releasing the tourniquet, we saw the anatomic position was stable grossly, we filled in some bone graft from the harvest site of the distal radius on the fracture itself and its construct. The plate had been cut. We had excellent fixation of the plate with four screws/eight cortices distally and seven cortices proximally. The fracture fragment was stable no matter whether there was flexion of the IPJ or the CMC. The tourniquet was fully released. We then placed some bone graft with cancellous chips in the donor site to help increase his likelihood and speed of efficiency in obtaining appropriate scaffolding. The wound was then closed over the plate with interrupted Monocryl and this was without complications. The wound was prepared for final transition from being open to closed and covered and a bulky dressing was applied over bacitracin, Adaptic and the patient left the operating room without evidence of anesthetic or operative complication. Job ID: [id number]
== END 2019-11-08 17:40 | disposition home or self-care (01) ==
LOC: SDC 08:33
PROVIDERS: ATTEND Orthopaedic Surgery Hand Surgery
PROC: 0RGX07Z Fusion of Left Finger Phalangeal Joint with Autologous Tissue Substitute, Open Approach (ICD-10-PCS; principal; 2019-11-08)
DX: T81.49XA Infection following a procedure, other surgical site, initial encounter (principal); M20.022 Boutonniere deformity of left finger(s); M24.542 Contracture, left hand; I10 Essential (primary) hypertension; E11.9 Type 2 diabetes mellitus without complications; Z79.4 Long term (current) use of insulin; Z79.82 Long term (current) use of aspirin; Z79.899 Other long term (current) drug therapy
CPT/HCPCS: 76000; 88307; 88311; C1713; J0670; J0690; J0702; J1885; J2250; J2405; J2704; J3010; J3370; J3490; S0020

== ENCOUNTER 2020-11-26 14:59 | Outpatient (CLI) | payer OTHER | END 2020-11-26 15:00 | disposition home or self-care (01) | LOC: BICRAD 14:59 | PROVIDERS: ATTEND Orthopaedic Surgery Hand Surgery | DX: M62.442 Contracture of muscle, left hand (principal); M19.042 Primary osteoarthritis, left hand ==

== ENCOUNTER 2021-02-05 15:32 | Outpatient (CLI) | payer OTHER ==
[2021-02-05 16:41] LABS: Anion Gap 11 mmol/L (10-20); BUN (Urea Nitrogen) 21 mg/dL (8.4-25.7); Calc. Creatinine Clearance 0 mL/min (70-130); Calcium 8.8 mg/dL (7.8-10.44); Carbon Dioxide 22 mmol/L (23-31); Chloride 110 mmol/L (98-107); Glucose 315 mg/dL (80-115); Potassium 4.3 mmol/L (3.5-5.1); Sodium 139 mmol/L (136-145)
[2021-02-05 16:46] LABS: #Basophils 0.1 10x3/uL (0.0-0.2); #Eosinphils 0.2 10x3/uL (0.0-0.5); #Monocytes 0.5 10x3/uL (0.0-1.1); #Neutrophils 3.3 10x3/uL (1.5-8.4); %Basophils 1.1 % (0.0-2.0); %Eosinophils 2.7 % (0.0-6.0); %Lymphocytes 27.9 % (18.0-47.0); %Neutrophils 58.9 % (40.0-75.0); Mean Corpuscular Hemoglobin 28.1 pg (27.0-33.0); Mean Corpuscular Volume 85.2 fl (81.2-95.1); Mean Platelet Volume 11.7 fl (7.4-10.4); Platelet Count 216 10x3/uL (150-450); RBC Distribution Width 12.9 % (11.5-14.5); Red Blood Cell (RBC) Count 4.27 10x6/uL (4.32-5.72); White Blood Cell (WBC) Count 5.6 10x3/uL (3.5-10.5)
[2021-02-06 11:25] LABS: SARS-CoV-2 PCR by NAA Not Detected (NotDetected)
== END 2021-02-05 15:33 | disposition home or self-care (01) ==
LOC: LABBT 15:32
PROVIDERS: ATTEND Orthopaedic Surgery Hand Surgery
DX: Z01.818 Encounter for other preprocedural examination (principal); M62.442 Contracture of muscle, left hand; Z20.822 Contact with and (suspected) exposure to COVID-19
CPT/HCPCS: 80048; 85025; 93005; 93010; U0003; U0005

== ENCOUNTER 2021-02-08 07:11 | Day surgery (SDC) | payer OTHER ==
[2021-02-06 13:01] VITALS: BMI 25.3
[2021-02-08] MEDS ORDERED: ceFAZolin 2 GM/DEX 5% 100 ML BAG ONE (07:35)
[2021-02-08] MEDS ORDERED: Fentanyl 100 MCG/2 ML VIAL ONE ×2 (07:47→09:38)
[2021-02-08] MEDS ORDERED: Bupivacaine HCl 0.5%/Epinephrine 1:200,000/PF 30 ml Vial ONE (08:00)
[2021-02-08] MEDS ORDERED: Bupivacaine PF 0.5% 30 ML VIAL ONE (08:48)
[2021-02-08] MEDS ORDERED: Neomycin-Polymyxin 1 ML AMP ONE (08:48)
[2021-02-08] MEDS ORDERED: Betamet Acet/Betamet Na Ph 30 MG/5 ML VIAL ONE (08:48)
[2021-02-08] MEDS ORDERED: Bacitracin Zinc Ointment 30 gm TUBE ONE (08:48)
[2021-02-08] MEDS ORDERED: Ondansetron PF 4 MG/2 ML Vial ONE (09:51)
[2021-02-08] MEDS ORDERED: ePHEDrine 50 MG/ML VIAL ONE (09:51)
[2021-02-08] MEDS ORDERED: Lidocaine 1% PF 5 ML VIAL ONE (09:51)
[2021-02-08] MEDS ORDERED: PROPOFOL 200 MG/20 ML VIAL ONE (09:51)
[2021-02-08] MEDS ORDERED: Ketorolac Tromethamine 30 MG/ML VIAL ONE (12:56)
== END 2021-02-08 15:25 | disposition home or self-care (01) ==
LOC: SDC 07:11
PROVIDERS: ATTEND Orthopaedic Surgery Hand Surgery
PROC: 3E0T3BZ Introduction of Anesthetic Agent into Peripheral Nerves and Plexi, Percutaneous Approach (ICD-10-PCS; principal; 2021-02-08)
PROC: 0RNX0ZZ Release Left Finger Phalangeal Joint, Open Approach (ICD-10-PCS; principal; 2021-02-08)
PROC: 0RNV0ZZ Release Left Metacarpophalangeal Joint, Open Approach (ICD-10-PCS; principal; 2021-02-08)
DX: M24.542 Contracture, left hand (principal); M24.642 Ankylosis, left hand; I10 Essential (primary) hypertension; E11.9 Type 2 diabetes mellitus without complications; Z79.4 Long term (current) use of insulin; Z79.82 Long term (current) use of aspirin; Z79.84 Long term (current) use of oral hypoglycemic drugs; Z79.899 Other long term (current) drug therapy
CPT/HCPCS: 36416; J0702; J1885; J2405; J2704; J3010; J3490; S0020